=== PATIENT | female | born 1950 | race Caucasian/White ===

== ENCOUNTER 2019-04-03 09:31 | Outpatient (CLI) | payer MEDICARE, OTHER, SELFPAY ==
--- NOTE | 2019-04-03 09:49 | USCV_ITS ---
Stefany Sandoval Age: 68 Gender: F : 1950 Exam Date: 04/03/2019 09:49 Ordering Phys: Raffi Pierre DPM Technologist: Kaden Jean Exam Location: [facility] [place] Indication: POOR PULSES AND ULCERS RIGHT LEFT Brachial 152.00 mmHg Brachial 150.00 mmHg Pressure (mmHg) Waveform Pressure (mmHg) Waveform 79.00 DRYWALL CONTRACTOR 78.00 DPA 0.51 Ankle/Brachial Index FINDINGS COULD NOT GET WAVEFORM IN RT GREAT TOE TO DO TOE PRESSURE Diminished resting DEVIKA on the right side of 0.51 No Doppler flow signals are obtained in the right big toe CONCLUSIONS Features of severe peripheral arterial disease on the right side with a possible occlusion of the digital artery to the right big toe Dr Josefa Ramirez MD [facility] (Electronically Signed) Final Date: 03 April 2019 18:54 S
== END 2019-04-03 09:32 | disposition home or self-care (01) ==
LOC: RAD 09:41
PROVIDERS: Family Provider Internal Medicine; PCP Internal Medicine; Visit Provider Podiatrist Foot & Ankle Surgery
DX: I73.9 Peripheral vascular disease, unspecified (principal)
CPT/HCPCS: 93922

== ENCOUNTER 2019-04-04 14:30 | Inpatient (IN) | payer MEDICARE, OTHER, SELFPAY ==
[2019-04-04] VITALS (49 sets, daily range): BP systolic 107–196; BP diastolic 69–96; PULSE 52–85; RESP 9–27; TEMP 36.6–36.9; O2SAT 90–100; BMI 17.2
--- NOTE | 2019-04-04 19:13 | ED_ITS ---
Entered by [id number], acting as scribe for Raffi Pierre DPM Apr 04, 2019 14:30 Documented by User: Raffi Pierre DPM 04/04/19 19:15 HPI - General Adult General: Chief complaint: General Medical Stated complaint: right leg pain Time Seen by Provider: 04/04/19 19:29 Source: patient and family Mode of arrival: wheelchair Limitations: no limitations and other History of Present Illness: MD complaint: redness , possible -no circulation to R foot Onset (ago): day(s) (yesterday) Location: lower extremity (R foot) Radiation: non-radiation Severity: moderate Quality: constant Pain Consistency: constant Relieving factors: none Associated symptoms: Deny chest pain, dyspnea, nausea, rash, palpitations or vomiting Treatments prior to arrival: other (seen Dr. Pierre sent to the ED for ulterasound) Review of Systems General: Reports: 10 or more systems reviewed and unremarkable except in HPI and below Const: Denies: fever or chills Card: Denies: chest pain or palpitations Resp: Denies: shortness of breath or productive cough GI: Denies: abdominal pain, nausea or vomiting : Denies: flank pain Musc: Reports: extremity swelling, joint pain, joint stiffness and limited range of motion Skin/Breast: Reports: nail changes; Denies: rash, sores or change in hair Neuro: Reports: difficulty walking; Denies: numbness in extremities or changes in sensation Psych: Denies: suicidal ideation Jad/Lymph: Denies: easy bruising PFSH ED PFSH: Statuses (acute, chronic, etc) shown below reflect problem list status as previously entered and may not be historically accurate Medical History (Updated 04/04/19 @ 08:05 by Raffi Pierre DPM) Above knee amputation of left lower extremity (Acute) Acute hypoxemic respiratory failure (Acute) Aneurysm (Acute) COPD (chronic obstructive pulmonary disease) (Acute) Coronary artery sclerosis (Acute) CVA (cerebral vascular accident) (Acute) Essential hypertension (Acute) History of myocardial infarction (Acute) Hyperlipidemia (Acute) Lupus (Acute) Onychodystrophy (Acute) Recurrent seizures (Acute) Seizure disorder (Acute) Social History Smoking and tobacco status: former smoker Physical Exam Extremity: RIGHT LOWER EXTREMITY: Yes foot & digits (redness, mild coolness) Course Vital Signs: Vital signs: Vital Signs Temperature 98.4 F 04/04/19 14:56 Pulse Rate 58 L 04/04/19 19:30 Respiratory Rate 16 04/04/19 19:30 Blood Pressure 175/96 04/04/19 19:30 Pulse Oximetry 97 04/04/19 19:30 MDM - General Adult Lab Data: Labs: Lab Results 04/04/19 04/04/19 Range/Units 20:08 20:08 WBC 7.6 (4.0-10.0) 10^3/ uL RBC 4.36 (4.1-5.3) 10^6/u L Hgb 13.5 (11.5-15.3) g/dL Hct 41.5 (37.0-47.0) % MCV 95.2 (81-99) fL MCH 31.0 (28.0-34.0) pg MCHC 32.5 (30.0-36.0) g/dL RDW 13.8 (12.1-15.1) % Plt Count 232 (130-400) 10^3/c mm MPV 10.7 H (7.4-10.4) fL Neut % (Auto) 53.3 % Lymph % (Auto) 27.5 % [place] % (Auto) 11.8 % Eos % (Auto) 5.9 % Baso % (Auto) 1.4 % Neut # (Auto) 4.1 (1.8-7.7) 10^3/u L Lymph # (Auto) 2.1 (0.8-4.8) 10^3/u L [place] # (Auto) 0.9 (0.2-0.9) 10^3/u L Eos # (Auto) 0.5 (0.0-0.8) 10^3/u L Baso # (Auto) 0.1 (0.0-0.1) 10^3/u L Nucleated RBC % (a uto) 0 % Nucleated RBCs # 0.0 /100WBC PT 13.20 (10.5-13.3) SECO NDS INR 0.98 (0.8-1.2) APTT 33.3 (23.9-36.7) SECO NDS Discharge Plan Discharge Prescriptions: No Action PODUS BOOT 1 unit as directed DAILY 99 Days Qty: 1 RF: 0 Coding Level of Care Code ED Manufacturing Helper for Chg Fwd Documented by User: Minnie Sanchez 04/04/19 20:33 HPI - General Adult General: Chief complaint: General Medical Stated complaint: right leg pain Time Seen by Provider: 04/04/19 19:29 PFSH ED PFSH: Statuses (acute, chronic, etc) shown below reflect problem list status as previously entered and may not be historically accurate Medical History (Updated 04/04/19 @ 08:05 by Raffi Pierre DPM) Above knee amputation of left lower extremity (Acute) Acute hypoxemic respiratory failure (Acute) Aneurysm (Acute) COPD (chronic obstructive pulmonary disease) (Acute) Coronary artery sclerosis (Acute) CVA (cerebral vascular accident) (Acute) Essential hypertension (Acute) History of myocardial infarction (Acute) Hyperlipidemia (Acute) Lupus (Acute) Onychodystrophy (Acute) Recurrent seizures (Acute) Seizure disorder (Acute) Social History Smoking and tobacco status: former smoker Course Vital Signs: Vital signs: Vital Signs Temperature 98.4 F 04/04/19 14:56 Pulse Rate 58 L 04/04/19 19:30 Respiratory Rate 16 04/04/19 19:30 Blood Pressure 175/96 04/04/19 19:30 Pulse Oximetry 97 04/04/19 19:30 MDM - General Adult Lab Data: Labs: Lab Results 04/04/19 04/04/19 Range/Units 20:08 20:08 WBC 7.6 (4.0-10.0) 10^3/ uL RBC 4.36 (4.1-5.3) 10^6/u L Hgb 13.5 (11.5-15.3) g/dL Hct 41.5 (37.0-47.0) % MCV 95.2 (81-99) fL MCH 31.0 (28.0-34.0) pg MCHC 32.5 (30.0-36.0) g/dL RDW 13.8 (12.1-15.1) % Plt Count 232 (130-400) 10^3/c mm MPV 10.7 H (7.4-10.4) fL Neut % (Auto) 53.3 % Lymph % (Auto) 27.5 % [place] % (Auto) 11.8 % Eos % (Auto) 5.9 % Baso % (Auto) 1.4 % Neut # (Auto) 4.1 (1.8-7.7) 10^3/u L Lymph # (Auto) 2.1 (0.8-4.8) 10^3/u L [place] # (Auto) 0.9 (0.2-0.9) 10^3/u L Eos # (Auto) 0.5 (0.0-0.8) 10^3/u L Baso # (Auto) 0.1 (0.0-0.1) 10^3/u L Nucleated RBC % (a uto) 0 % Nucleated RBCs # 0.0 /100WBC PT 13.20 (10.5-13.3) SECO NDS INR 0.98 (0.8-1.2) APTT 33.3 (23.9-36.7) SECO NDS EKG Data^: EKG 1: Attestation: I personally reviewed and interpreted this EKG as follows: EKG interpretation date: 04/04/19 EKG interpretation time: 19:46 Interpretation: Normal sinus rhythm at 65 beats a minute, interventricular conduction delay, similar to previous. Discharge Plan Discharge Prescriptions: No Action PODUS BOOT 1 unit as directed DAILY 99 Days Qty: 1 RF: 0 Coding Level of Care Code ED Manufacturing Helper for Chg Fwd The documentation recorded by the scribe, [id number], accurately reflects the service I personally performed and the decisions made by Goodman barron Tyler, DPM Apr 04, 2019 14:30
--- NOTE | 2019-04-04 19:26 | PC.NURSE ---
pt presents to ER with c/o's rt foot pain r/t no circulation. seen dr luther yesterday. pt and family states she is here because blood flow scans from yesterday showed no flow to right foot/toes. needs cardiac consult
--- NOTE | 2019-04-04 19:30 | USR_ITS ---
PROCEDURE INFORMATION: Exam: US Duplex Right Lower extremity arteries or arterial bypass grafts Exam date and time: 04/04/2019 7:39 PM Age: 68 years old Clinical indication: Pain; Foot; Right; Prior surgery; Surgery type: Patient has plate in lower leg and left leg amputee at knee; Additional info: Pain in foot TECHNIQUE: Imaging protocol: Right Real-time duplex scan of the arteries or arterial bypass grafts of the right lower extremity with 2-D otero scale, color Doppler flow and spectral waveform analysis. COMPARISON: No relevant prior studies available. FINDINGS: Right common femoral artery: No discernible flow. No waveform could be obtained. Right superficial femoral artery: No flow is identified in the right proximal iliac, right femoral and right superficial femoral artery. Monophasic flow seen in the right popliteal and infrapopliteal vessels. The lumen of the right popliteal and posterior tibial artery is narrowed due to heavy atherosclerotic plaque. Diffuse plaque is identified in the right iliac, femoral and superficial femoral arteries. Right popliteal artery: See Right Superficial Femoral Artery Finding. Right calf/foot arteries: Monophasic flow. Diffuse atherosclerotic changes. Soft tissues: No soft tissue fluid collection. US/[place] [id number] IMPRESSION: 1. Occlusion of the right iliac, right femoral and right superficial femoral arteries. There is no discernible flow and no waveforms are obtained. 2. Monophasic flow in the right popliteal and right posterior tibial artery with narrowing of the lumen due to diffuse plaque.
--- NOTE | 2019-04-04 19:33 | ECG_ITS ---
Measurements Intervals [place] Rate: 65 P: 41 MT: 164 QRS: -32 QRSD: 158 T: 115 QT: 459 QTc: 478 SINUS RHYTHM POSSIBLE LEFT ATRIAL ENLARGEMENT [-0.1mV P WAVE IN V1/V2] LEFT AXIS DEVIATION [QRS AXIS < -30] Incomplete left bundle branch block Compared to ECG 07/26/2017 05:26:33 Incomplete left bundle branch block now present Electronically Signed On 04-05-2019 11:31:21 ASSISTANT DIRECTOR OF FINANCIAL AID by Barrera Watters M.D. [email or web address]
[2019-04-04 20:15] LABS: Basophils # 0.1 10^3/uL (0.0-0.1); Basophils % 1.4 %; Eosinophils # 0.5 10^3/uL (0.0-0.8); Eosinophils % 5.9 %; Hematocrit 41.5 % (37.0-47.0); Hemoglobin 13.5 g/dL (11.5-15.3); Lymphocytes # 2.1 10^3/uL (0.8-4.8); Lymphocytes % 27.5 %; Mean Corpuscular HGB Conc 32.5 g/dL (30.0-36.0); Mean Corpuscular Volume 95.2 fL (81-99); Mean Platelet Volume 10.7 fL (7.4-10.4); Monocytes # 0.9 10^3/uL (0.2-0.9); Monocytes % 11.8 %; Neutrophils # 4.1 10^3/uL (1.8-7.7); Neutrophils % 53.3 %; Nucleated Red Blood Cells % 0 %; Platelet Count 232 10^3/cmm (130-400); Red Blood Count 4.36 10^6/uL (4.1-5.3); Red Cell Distribution Width 13.8 % (12.1-15.1); White Blood Count 7.6 10^3/uL (4.0-10.0)
[2019-04-04 20:23] LABS: INR 0.98 (0.8-1.2)
[2019-04-04 20:24] LABS: Partial Thromboplastin Time 33.3 SECONDS (23.9-36.7)
--- NOTE | 2019-04-04 21:27 | PC.NURSE ---
Assisted patient onto beside commode with assistance of family. Patient has attempted to urinate but is having difficulty, nurse has been informed.
[2019-04-04 21:28] LABS: Alanine Aminotransferase 12 U/L (0-33); Albumin Level 4.2 g/dL (3.5-5.2); Alkaline Phosphatase 125 IU/L (35-105); Aspartate Amino Transferase 17 U/L (0-32); Blood Urea Nitrogen 19 mg/dL (8-23); Calcium 10.9 mg/dL (8.5-10.5); Carbon Dioxide 25 mmol/L (22-29); Chloride 93 mmol/L (98-107); Creatine Phosphokinase 43 U/L (26-192); Creatinine Clr Calc Pharmacy 49.5327; Globulin 3.7 g/dL (1.3-4.6); Glomerular Filtration Rate 83.7 mL/min (90-130); Glucose 111 mg/dL (74-106); Sodium 131 mmol/L (136-145); Total Bilirubin 0.3 mg/dL (0.15-1.2); Total Protein 7.9 g/dL (6.6-8.7)
--- NOTE | 2019-04-04 21:30 | ED_ITS ---
Entered by Maddison Berry, acting as scribe for Minnie Sanchez Sridevi Apr 04, 2019 14:30 HPI - General Adult General: Chief complaint: General Medical Stated complaint: right leg pain Time Seen by Provider: 04/04/19 19:29 Source: patient Mode of arrival: wheelchair Limitations: no limitations History of Present Illness: HPI narrative: Ms. Sandoval is a nice 68-year-old female who comes in complaining of right lower extremity pain. She states she has had pain in her foot for the past 2 weeks but is gotten much worse recently. She has a history of peripheral vascular disease and went to see Dr. Nash and Michael Pierre a local raw mill operator about this and they scheduled an outpatient DEVIKA test. Apparently Mr. Pierre got the results of this and was concerned as the patient was having escalating pain and sent her to the ER. Patient states that she has increased pain but no other complaints at this time. MD complaint: redness and cool to touch R foot Onset (ago): day(s) (yesterday) Location: lower extremity (R foot redness) Severity: moderate Pain Consistency: constant Relieving factors: none Exacerbating factors: none Associated symptoms: Reports no associated symptoms; Deny chest pain, confusion, diaphoresis, dyspnea, headache(s), nausea, rash, palpitations, syncope or vomiting Treatments prior to arrival: other (seen Dr. Pierre and they sent her here) Review of Systems General: Reports: 10 or more systems reviewed and unremarkable except in HPI and below Const: Denies: fever, chills, body aches, change in appetite, night sweats, diaphoresis or change in sleep pattern Eyes: Denies: eye redness or yellow eyes ENMT: Denies: bad breath, nasal discharge or facial/sinus pain Card: Denies: chest pain, palpitations, irregular heart rhythm, syncope, pre- syncope, shortness of breath on exertion or shortness of breath when lying down Resp: Denies: shortness of breath, productive cough, non-productive cough, wheezing, coughing up blood or chest congestion GI: Denies: abdominal pain, nausea, vomiting, vomiting blood, coffee grounds in vomit, diarrhea, constipation, cramping, blood in stool or black tarry stool : Denies: flank pain, painful urination, urinary frequency, urinary urgency, decreased urine ouput, urinary incontinence or blood in urine Musc: Denies: neck pain, back pain, extremity pain, extremity swelling, joint pain, joint swelling, joint warmth or joint stiffness Skin/Breast: Denies: rash, skin tenderness or yellow skin Neuro: Denies: headache, numbness in extremities, weakness in extremities, changes in sensation, lack of coordination, difficulty walking, dizziness, vertigo or confusion Endo: Denies: excessive thirst, tired all the time, cold intolerance, excessive sweating, flushing or hot flashes Jad/Lymph: Denies: easy bruising, easy bleeding, petechiae or enlarged lymph nodes All/Imm: Denies: hives, throat swelling, tongue swelling, facial swelling or acute wheezing PFSH ED PFSH: Statuses (acute, chronic, etc) shown below reflect problem list status as previously entered and may not be historically accurate Medical History (Updated 04/04/19 @ 08:05 by Raffi Pierre DPM) Above knee amputation of left lower extremity (Acute) Acute hypoxemic respiratory failure (Acute) Aneurysm (Acute) COPD (chronic obstructive pulmonary disease) (Acute) Coronary artery sclerosis (Acute) CVA (cerebral vascular accident) (Acute) Essential hypertension (Acute) History of myocardial infarction (Acute) Hyperlipidemia (Acute) Lupus (Acute) Onychodystrophy (Acute) Recurrent seizures (Acute) Seizure disorder (Acute) Social History Smoking and tobacco status: former smoker Physical Exam Const: COMMON NORMALS: no apparent distress, oriented x3, no limitations, healthy appearing and well nourished EXAM LIMITATIONS: no altered mental status GENERAL APPEARANCE: cooperative, well kempt and well developed ORIENTATION/CONSCIOUSNESS: Yes awake HENMT: COMMON NORMALS: normocephalic, head/scalp atraumatic, hearing grossly normal bilaterally, external ears normal, EAC's normal, external nose normal and moist oral mucous membranes HEAD & SCALP: normal to inspection, normocephalic and atraumatic FACE & SINUS: normal facial exam and face symmetric NOSE: external nose normal and nares normal EXTERNAL EAR: Yes external ears normal EXTERNAL AUDITORY CANAL: EAC's normal MOUTH: oral and palatal mucosa normal and tongue normal Eye: COMMON NORMALS: PERRL, EOMs intact bilaterally, conjunctivae normal and no scleral icterus GENERAL EYE: normal appearance of both eyes and normal light reflex CONJUNCTIVA: Yes conjunctivae normal SCLERA: sclerae normal CORNEA: Yes corneas normal PUPIL: Yes PERRL DIRECT OPHTHALMOSCOPY: Yes normal light reflex Neck/C-Spine: COMMON NORMALS: full ROM, no lymphadenopathy, supple, no meningeal signs and no JVD GENERAL: Yes normal visual inspection and Yes trachea midline CERVICAL SPINE: Yes cervical ROM normal Chest: COMMONS NORMALS: inspection of chest normal and palpation of chest normal Resp: COMMON NORMALS: normal respiratory effort, no retractions, no use of accessory muscles and clear to auscultation bilaterally EFFORT & INSPECTION: Yes able to speak in complete sentences AUSCULTATION: clear to auscultation bilaterally Cardio: COMMON NORMALS: no JVD, regular rate, regular rhythm, S1 normal heart sound, S2 normal heart sound, no gallops, no clicks, no murmurs and no rub JUGULAR VENOUS DISTENTION: no JVD RATE: regular rate RHYTHM: regular rhythm HEART SOUNDS: S1 normal and S2 normal GI: COMMON NORMALS: soft to palpation, non-tender, no hepatosplenomegaly and no masses INSPECTION: Yes normal to inspection PALPATION: Yes soft and Yes no hepatosplenomegaly : COMMON NORMALS: Yes no CVA tenderness BLADDER/KIDNEY EXAM: Yes no CVA tenderness Back/Pelvis: COMMON NORMALS: no CVA tenderness, thoracic and lumbar spine normal to inspection, no thoracic nor lumbar tenderness and thoraco-lumbar ROM normal Neuro: COMMON NORMALS: oriented x3, CN's II-XII intact bilaterally, moves all extremities, no focal motor deficits and no sensory deficits noted MENINGEAL SIGNS: Yes no meningeal signs Psych: COMMON NORMALS: mental status grossly normal, thought process normal, cooperative, affect normal, speech normal and activity/motor behavior normal APPEARANCE: Yes well kempt SPEECH: Yes normal speech THOUGHT PROCESS: normal thought process Skin: COMMON NORMALS: no rashes or lesions noted, skin turgor normal, no jaundice, no petechiae and no mottling GENERAL SKIN EXAM: no rashes or lesions noted and turgor normal Course Vital Signs: Vital signs: Vital Signs Temperature 97.8 F 04/04/19 23:54 Pulse Rate 56 L 04/04/19 23:54 Respiratory Rate 17 04/04/19 23:54 Blood Pressure 178/73 04/04/19 23:54 Pulse Oximetry 95 04/04/19 23:54 MDM - General Adult MDM Narrative: Medical decision making narrative: Ms. Sandoval is a 68-year-old female who comes in with ischemic pain of her right lower extremity. Her ultrasound shows only minimal flow in the CAREER TECHNICAL EDUCATION INSTRUCTOR. I reviewed all this with Dr. Watters who states that the patient's pain is intractable she can come into the hospital for evaluation. He does not feel that she needs any intervention tonight. The patient's pain is actually better now after IV pain medication. I reviewed the case in full with Dr. Turcios who is agreeable to admission. The patient was given Lovenox and will be admitted to the floor. Currently her pain is under control after IV Dilaudid. Lab Data: Attestation: I reviewed the patient's lab results. Labs: Lab Results 04/04/19 04/04/19 04/04/19 Range/Units 20:08 20:08 20:50 WBC 7.6 (4.0-10.0) 10^3/ uL RBC 4.36 (4.1-5.3) 10^6/u L Hgb 13.5 (11.5-15.3) g/dL Hct 41.5 (37.0-47.0) % MCV 95.2 (81-99) fL MCH 31.0 (28.0-34.0) pg MCHC 32.5 (30.0-36.0) g/dL RDW 13.8 (12.1-15.1) % Plt Count 232 (130-400) 10^3/c mm MPV 10.7 H (7.4-10.4) fL Neut % (Auto) 53.3 % Lymph % (Auto) 27.5 % [place] % (Auto) 11.8 % Eos % (Auto) 5.9 % Baso % (Auto) 1.4 % Neut # (Auto) 4.1 (1.8-7.7) 10^3/u L Lymph # (Auto) 2.1 (0.8-4.8) 10^3/u L [place] # (Auto) 0.9 (0.2-0.9) 10^3/u L Eos # (Auto) 0.5 (0.0-0.8) 10^3/u L Baso # (Auto) 0.1 (0.0-0.1) 10^3/u L Nucleated RBC % (a uto) 0 % Nucleated RBCs # 0.0 /100WBC PT 13.20 (10.5-13.3) SECO NDS INR 0.98 (0.8-1.2) APTT 33.3 (23.9-36.7) SECO NDS Sodium 131 L (136-145) mmol/L Potassium 4.0 (3.5-5.1) mmol/L Chloride 93 L (98-107) mmol/L Carbon Dioxide 25 (22-29) mmol/L Anion Gap 17.0 (5-19) BUN 19 (8-23) mg/dL Creatinine 0.7 (0.5-0.9) mg/dL GFR Calculation 83.7 L (90-130) mL/min Glucose 111 H (74-106) mg/dL Lactate (0.5-2.2) mmol/L Calcium 10.9 H (8.5-10.5) mg/dL Magnesium 2.0 (1.7-2.3) mg/dL Total Bilirubin 0.3 (0.15-1.2) mg/dL AST 17 (0-32) U/L ALT 12 (0-33) U/L Alkaline Phosphata se 125 H (35-105) IU/L Creatine Kinase 43 (26-192) U/L Total Protein 7.9 (6.6-8.7) g/dL Albumin 4.2 (3.5-5.2) g/dL Globulin 3.7 (1.3-4.6) g/dL 04/04/19 Range/Units 20:50 WBC (4.0-10.0) 10^3/ uL RBC (4.1-5.3) 10^6/u L Hgb (11.5-15.3) g/dL Hct (37.0-47.0) % MCV (81-99) fL MCH (28.0-34.0) pg MCHC (30.0-36.0) g/dL RDW (12.1-15.1) % Plt Count (130-400) 10^3/c mm MPV (7.4-10.4) fL Neut % (Auto) % Lymph % (Auto) % Arthur % (Auto) % Eos % (Auto) % Baso % (Auto) % Neut # (Auto) (1.8-7.7) 10^3/u L Lymph # (Auto) (0.8-4.8) 10^3/u L [place] # (Auto) (0.2-0.9) 10^3/u L Eos # (Auto) (0.0-0.8) 10^3/u L Baso # (Auto) (0.0-0.1) 10^3/u L Nucleated RBC % (a uto) % Nucleated RBCs # /100WBC PT (10.5-13.3) SECO NDS INR (0.8-1.2) APTT (23.9-36.7) SECO NDS Sodium (136-145) mmol/L Potassium (3.5-5.1) mmol/L Chloride (98-107) mmol/L Carbon Dioxide (22-29) mmol/L Anion Gap (5-19) BUN (8-23) mg/dL Creatinine (0.5-0.9) mg/dL GFR Calculation (90-130) mL/min Glucose (74-106) mg/dL Lactate 1.0 (0.5-2.2) mmol/L Calcium (8.5-10.5) mg/dL Magnesium (1.7-2.3) mg/dL Total Bilirubin (0.15-1.2) mg/dL AST (0-32) U/L ALT (0-33) U/L Alkaline Phosphata se (35-105) IU/L Creatine Kinase (26-192) U/L Total Protein (6.6-8.7) g/dL Albumin (3.5-5.2) g/dL Globulin (1.3-4.6) g/dL Imaging Data^: US: Radiologist's impression: [address] [address] Ultrasound Report Signed with Addenda Patient: Efrain Sandoval #: [id number] : 3Acct#:[id number] Age/Sex: 68 / FADM Date: 04/04/19 Loc: ERRoom/Bed: Attending Dr: Ordering Provider/Ordering MD: Minnie Sanchez DO Date of Service: 04/04/19 Procedure(s): [place] [id number] Accession Number(s): [id number] Report Number: [id number] ADDENDUM US/[place] [id number] THIS REPORT CONTAINS FINDINGS THAT MAY BE CRITICAL TO PATIENT CARE. The findings were verbally communicated via telephone conference with Minnie Sanchez at 8:47 PM NURSE CONSULTANT on 04/04/2019. The findings were acknowledged and understood. Also discussed was the monophasic flow in the popliteal artery and dorsalis pedis and very little flow visualized in the posterior tibial artery. No good waveform is identified in the posterior tibial artery is described above. Instead it should read that there is monophasic flow in the right dorsalis pedis and right popliteal artery. Addendum Dictated By: Nemo Concepcion Addendum Signed By: Rayne Concepcion Date/Time:04/04/192048 Addendum Cosigned By: PROCEDURE INFORMATION: Exam: US Duplex Right Lower extremity arteries or arterial bypass grafts Exam date and time: 04/04/2019 7:39 PM Age: 68 years old Clinical indication: Pain; Foot; Right; Prior surgery; Surgery type: Patient has plate in lower leg and left leg amputee at knee; Additional info: Pain in foot TECHNIQUE: Imaging protocol: Right Real-time duplex scan of the arteries or arterial bypass grafts of the right lower extremity with 2-D otero scale, color Doppler flow and spectral waveform analysis. COMPARISON: No relevant prior studies available. FINDINGS: Right common femoral artery: No discernible flow. No waveform could be obtained. Right superficial femoral artery: No flow is identified in the right proximal iliac, right femoral and right superficial femoral artery. Monophasic flow seen in the right popliteal and infrapopliteal vessels. The lumen of the right popliteal and posterior tibial artery is narrowed due to heavy atherosclerotic plaque. Diffuse plaque is identified in the right iliac, femoral and superficial femoral arteries. Right popliteal artery: See Right Superficial Femoral Artery Finding. Right calf/foot arteries: Monophasic flow. Diffuse atherosclerotic changes. Soft tissues: No soft tissue fluid collection. US/[place] [id number] IMPRESSION: 1. Occlusion of the right iliac, right femoral and right superficial femoral arteries. There is no discernible flow and no waveforms are obtained. 2. Monophasic flow in the right popliteal and right posterior tibial artery with narrowing of the lumen due to diffuse plaque. Dictated By:Nemo Concepcion Signed By:Mira Concepcionigned Date/Time:04/04/192045 DD/ 43 EKG Data^: EKG 1: Computer generated interpretation: Duplex Scan Lower Extremity Artery 04/04/19 19:30 IMPRESSION: 1. Occlusion of the right iliac, right femoral and right superficial femoral arteries. There is no discernible flow and no waveforms are obtained. 2. Monophasic flow in the right popliteal and right posterior tibial artery with narrowing of the lumen due to diffuse plaque. ADDENDUM: 04/04/192048 THIS REPORT CONTAINS FINDINGS THAT MAY BE CRITICAL TO PATIENT CARE. The findings were verbally communicated via telephone conference with Minnie Sanchez at 8:47 PM NURSE CONSULTANT on 04/04/2019. The findings were acknowledged and understood. Also discussed was the monophasic flow in the popliteal artery and dorsalis pedis and very little flow visualized in the posterior tibial artery. No good waveform is identified in the posterior tibial artery is described above. Instead it should read that there is monophasic flow in the right dorsalis pedis and right popliteal artery. Discharge Plan Discharge Patient Disposition: Admitted As Inpatient Admit Provider: Rafiq Turcios Discharge Date/Time: 04/04/19 23:16 Coding Level of Care Code ED Research Soil Scientist for Chg Fwd Exam Problem Focused The documentation recorded by the Jamal cervantes Bridget Annette, accurately reflects the service I personally performed and the decisions made by Daniel barron Eli N Apr 04, 2019 14:30
[2019-04-04] MEDS: HYDROmorphone 1 mg/mL INJ 1 mL 0.5 MG IVP (21:35)
[2019-04-04] MEDS: ondansetron 2 mg/ML SDV 2 mL 4 MG IVP (21:35)
--- NOTE | 2019-04-04 22:30 | PM.HP ---
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 Patient is stating that she is dependent on her for most of her daily activities, she enjoys watching sports on television, she ambulates via wheelchair, she recently quit smoking about 3 months ago. For past 3 to 5 weeks she has been having pain in her right leg while at rest. She has seen lift truck mechanic Dr. Pierre who ordered DEVIKA which were 0.51 hence she was referred to ER for admission. On my evaluation patient was not complaining of right leg pain, she complained of dysuria, she denied any nausea, vomiting, diarrhea, she was made n.p.o. for possible intervention by Dr. Watters in the morning. ER physician has talked with Dr. Watters already. First therapeutic dose of Lovenox has been administered, No active signs of gangrene or necrosis of right toe Review of Systems Const: Reports: change in appetite, fatigue and malaise; Denies: fever, chills or body aches Eyes: Denies: change in vision or blurry vision ENMT: Denies: throat pain Card: Denies: chest pain, palpitations or edema Resp: Denies: shortness of breath GI: Denies: abdominal pain, nausea or vomiting : Reports: difficulty urinating, painful urination and urinary frequency; Denies: flank pain Musc: Reports: back pain, extremity pain, redness, joint stiffness, limited range of motion and muscle cramps; Denies: neck pain or extremity swelling Skin/Breast: Reports: dry skin; Denies: rash Neuro: Denies: headache Psych: Denies: anxiety Endo: Denies: excessive urination Jad/Lymph: Denies: easy bruising All/Imm: Denies: hives Medications/Allergies Home Medications Medication Instructions Recorded Confirmed Last Taken Type amlodipine [Norvasc] 10 mg PO BEDTIME 04/05/19 04/05/19 04/04/19 History 10 mg aspirin [Aspirin Low Dose] 81 mg PO DAILY 04/05/19 04/05/19 04/04/19 History 81 mg docusate sodium [DOK] 100 mg PO BID 04/05/19 04/05/19 04/04/19 History 100 mg duloxetine [Cymbalta] 20 mg PO BEDTIME 04/05/19 04/05/19 04/04/19 History 20 mg levetiracetam [Keppra] 500 mg PO BID 04/05/19 04/05/19 04/04/19 History 500 mg metoprolol tartrate [Lopressor] 100 mg PO BEDTIME 04/05/19 04/05/19 04/04/19 History 100 mg js-kk-boei-FA-Ca carb-vit K 1 tab PO DAILY 04/05/19 04/05/19 04/04/19 History [Women's Multivitamin] 1 tab olmesartan [Benicar] 40 mg PO BEDTIME 04/05/19 04/05/19 04/04/19 History 40 mg Allergies Allergy/AdvReac Type Severity Reaction Status Date / Time Sulfa (Sulfonamide Allergy Unknown Unknown Verified 03/13/19 14:07 Antibiotics) PFSH Acute PFSH: Statuses (acute, chronic, etc) shown below reflect problem list status as previously entered and may not be historically accurate Medical History (Updated 04/05/19 @ 01:53 by Rafiq Turcios MD) Above knee amputation of left lower extremity (Acute) Above knee amputation of left lower extremity (Acute) Acute hypoxemic respiratory failure (Acute) Aftercare following right hip joint replacement surgery (Acute) Anemia of chronic disease (Acute) Aneurysm (Acute) Brain aneurysm (Acute) COPD (chronic obstructive pulmonary disease) (Acute) Coronary artery disease (Acute) Coronary artery sclerosis (Acute) CVA (cerebral vascular accident) (Acute) Essential hypertension (Acute) History of myocardial infarction (Acute) Hyperlipidemia (Acute) Lupus (Acute) Onychodystrophy (Acute) Osteoporosis (Acute) Peripheral vascular disease (Acute) Presence of stent in LAD coronary artery (Acute) Raynaud phenomenon (Acute) Recurrent seizures (Acute) Rheumatoid arthritis (Acute) Seizure disorder (Acute) SLE (systemic lupus erythematosus related syndrome) (Acute) Unilateral AKA (Acute) Vitamin D deficiency (Acute) Surgical History (Updated 04/05/19 @ 01:53 by Rafiq Turcios MD) Hx of cholecystectomy (Acute) S/P coil embolization of cerebral aneurysm (Acute) Family History (Updated 04/05/19 @ 01:53 by Rafiq Turcios MD) Other CAD (coronary artery disease) Social History (Updated 04/05/19 @ 01:53 by Rafiq Turcios MD) Smoking and tobacco status: former smoker Alcohol intake: never Substance/Drug Use: never Caregiver/support person: Yes Lives independently: No Household members: spouse Housing: House Marital status: Vitals/I&O/Wt Last Vital Signs Temp 98.4 F 04/04/19 14:56 Pulse 56 L 04/04/19 20:45 Resp 17 04/04/19 21:35 BP 179/86 04/04/19 20:30 Pulse Ox 98 04/04/19 21:35 Weight last 48 hrs Weight 45.359 kg Physical Exam Narrative: EXAM NARRATIVE: Frail elderly female She was eating sandwich when I entered the room, She has dentures, has mild slurring of speech which is old as per my documentation reviewed Otherwise she has good strength of her bilateral upper extremities, S1, S2 no signs of JVD or heart failure, she has systolic murmur grade 2/6 radiating toward her axilla Abdomen soft nontender nondistended bowel sound present Neurologically nonfocal exam Left above-knee amputation Skin does not show any signs of ischemia gangrene or ulcer Her right toe has 1+ dorsalis pedis pulse, very feeble posterior tibial pulse, no active signs of gangrene or ulcer no cyanosis, temperature normal Onychomycosis She has rheumatoid arthritis and deformity Loss of fingernails and the digital tips Data : 04/04/19 20:08 04/04/19 20:50 A&P Assessment and plan (1) Ischemic leg pain: Status: Acute Code(s): I99.8 - Other disorder of circulatory system (2) Onychodystrophy: Status: Acute Code(s): L60.3 - Nail dystrophy Additional A&P Information Right ischemic limb Patient is having right leg pain at rest She has raynaud's phenomenon and recently quit smoking 3 months ago I will keep her on calcium lio, aspirin, statin, full dose therapeutic Lovenox every 12, n.p.o. D5 half-normal fluids at 30 cc/h Her DEVIKA was 0.51 Dr. Watters has been consulted by ER physician Dr. Pierre has referred patient to ER for vascular intervention UTI with active symptoms of dysuria and frequency With straight catheter get urine sample for urinalysis and start ceftriaxone afterwards Coronary disease status post stent in LAD No active exacerbation She has a history of breakthrough seizures which he started having after brain aneurysm clipping Continue antiepileptic Anemia of chronic disease: Hemoglobin 13, stable Patient is full code DVT prophylaxis not indicated currently she is on therapeutic Lovenox GI prophylaxis: Not indicated Attestations Medical Necessity Statement*: Anticipating stay in the hospital course greater than 2 midnights because of ischemic limb intervention Time Spent in Patient Care: 60 Coding Level of Care Code Acute 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
[2019-04-04] MEDS: enoxaparin 60 mg/0.6 mL Syringe 45 MG SUBCUT (22:50)
[2019-04-05] VITALS (10 sets, daily range): BP systolic 108–178; BP diastolic 60–82; PULSE 56–81; RESP 16–22; TEMP 36.4–36.7; O2SAT 92–99
[2019-04-05] MEDS: atorvastatin 40 mg Tablet 80 MG PO ×2 (02:11→21:33)
[2019-04-05] MEDS: acetaminophen 325 mg Tablet 650 MG PO ×2 (02:11→19:46)
[2019-04-05] MEDS: sodium chloride 0.9% 1,000 ML 100 ML IV (02:12)
[2019-04-05] MEDS: dextrose 5%-sod chloride 0.45% 1,000 ML 30 ML IV (02:22)
[2019-04-05 04:05] LABS: Glucose Urine UA Norm (Normal); Protein Urine Trace (Negative); Specific Gravity, Urine 1.015 (1.005-1.030); Urine Appearance Hazy (CLEAR); Urine Color Yellow (Yellow); pH Urine 6 (5-7)
[2019-04-05 04:06] LABS: Bilirubin Urine Neg (NEGATIVE); Blood Urine 3+ (Negative); Ketones Urine Negative (Negative); Nitrate Urine Negative (Negative); Urobilinogen Urine Norm (Negative)
[2019-04-05 04:07] LABS: Hyaline Casts Urine 15-25
[2019-04-05 04:09] LABS: Leukocyte Esterase Urine Trace (Negative)
[2019-04-05 04:10] LABS: WBC Urine 15-25 /hpf (0-5)
[2019-04-05 04:11] LABS: Bacteria Urine TRACE; Transitional Epi Cells Urine 0-4 /hpf
[2019-04-05 04:13] LABS: Add Urine Culture? Yes
[2019-04-05 07:01] LABS: Basophils # 0.1 10^3/uL (0.0-0.1); Basophils % 1.3 %; Eosinophils # 0.6 10^3/uL (0.0-0.8); Eosinophils % 8.2 %; Hemoglobin 12.7 g/dL (11.5-15.3); Lymphocytes % 29.1 %; Mean Corpuscular HGB Conc 32.6 g/dL (30.0-36.0); Mean Corpuscular Hemoglobin 31.1 pg (28.0-34.0); Mean Corpuscular Volume 95.6 fL (81-99); Mean Platelet Volume 11.7 fL (7.4-10.4); Monocytes # 0.8 10^3/uL (0.2-0.9); Monocytes % 12.2 %; Neutrophils # 3.3 10^3/uL (1.8-7.7); Neutrophils % 48.9 %; Nucleated Red Blood Cells % 0 %; Platelet Count 166 10^3/cmm (130-400); Red Blood Count 4.08 10^6/uL (4.1-5.3); Red Cell Distribution Width 13.8 % (12.1-15.1); White Blood Count 6.8 10^3/uL (4.0-10.0)
[2019-04-05 07:52] LABS: Anion Gap 17.1 (5-19); Blood Urea Nitrogen 17 mg/dL (8-23); Calcium 10.1 mg/dL (8.5-10.5); Carbon Dioxide 25 mmol/L (22-29); Chloride 96 mmol/L (98-107); Creatinine Clr Calc Pharmacy 49.5327; Glucose 101 mg/dL (74-106); Osmolality Calculated 275 mOsm/kg (285-295); Potassium 4.1 mmol/L (3.5-5.1); Sodium 134 mmol/L (136-145)
[2019-04-05] MEDS: metoprolol tartrate 50 mg Tablet PO ×2 (08:44→17:14)
[2019-04-05] MEDS: aspirin 81 mg EC Tablet PO (08:44)
[2019-04-05] MEDS: levETIRAcetam 500 mg Tablet PO ×2 (08:44→17:14)
[2019-04-05] MEDS: docusate sodium 100 mg Capsule PO ×2 (08:45→17:14)
--- NOTE | 2019-04-05 08:52 | PC.NURSE ---
Pedal pulse to right foot doppled at this time. Pt alert and oriented x3. Redness to right lower extremity, and right heel. Cushion in place to right heel to prevent breakdown.
[2019-04-05] MEDS: enoxaparin 60 mg/0.6 mL Syringe 50 MG SUBCUT (10:25)
--- NOTE | 2019-04-05 10:29 | PM.CONSULT ---
Providers/Reason For Consult Consulting Physican/Specialty*: Cardiovascular medicine Reason for Consult*: Pain in the right foot with abnormal noninvasive studies Requesting Libiaan: Attending Physician: Bette Cordon MD Primary Care Provider: Jakob Nash MD History of Present Illness History of Present Illness Stefany Sandoval is a 68 year old female who has a known history of heavy tobacco abuse and peripheral arterial disease. Several years ago she had her left leg removed below the knee. On March 13 of this year she went to visit Dr. Pierre with pain in her right foot. There were no lesions on the foot but he was concerned about her vasculature. She was having numbness and tingling as well as pain in the foot. She states that the symptoms have been there for about 2 weeks. Yesterday, information regarding the right ankle-brachial index returned to his office. The measurement was 0.51. The patient contacted his office and reported increased pain. He directed her to the emergency room. She was admitted overnight and we are asked to see her as a result of this. Duplex scan of the right lower extremity was accomplished later in the day yesterday. This revealed occlusion of the right iliac, right femoral and right superficial femoral arteries. There was no discernible flow in any of these vessels. There was monophasic flow in the right popliteal and the right posterior tibial artery with narrowing of the lumen. This is likely related to collateral flow. She is still having a fair amount of pain in the foot. She has been placed on aspirin, statin, amlodipine, beta-lio and Lovenox twice daily. Her creatinine is normal. Meds/Allergies Home Medications and Allergies Home Medications Medication Instructions Recorded Confirmed Type amlodipine [Norvasc] 10 mg PO BEDTIME 04/05/19 04/05/19 History aspirin [Aspirin Low Dose] 81 mg PO DAILY 04/05/19 04/05/19 History docusate sodium [DOK] 100 mg PO BID 04/05/19 04/05/19 History duloxetine [Cymbalta] 20 mg PO BEDTIME 04/05/19 04/05/19 History levetiracetam [Keppra] 500 mg PO BID 04/05/19 04/05/19 History metoprolol tartrate [Lopressor] 100 mg PO BEDTIME 04/05/19 04/05/19 History jd-tg-kdiy-FA-Ca carb-vit K 1 tab PO DAILY 04/05/19 04/05/19 History [Women's Multivitamin] olmesartan [Benicar] 40 mg PO BEDTIME 04/05/19 04/05/19 History Allergies Allergy/AdvReac Type Severity Reaction Status Date / Time Sulfa (Sulfonamide Allergy Unknown Unknown Verified 03/13/19 14:07 Antibiotics) Current Medications Current Medications Generic Name Dose Route Start Last Admin Trade Name Freq PRN Reason Stop Dose Admin Acetaminophen 650 mg 04/04/19 23:59 04/05/19 02:11 Tylenol PO 650 mg Q6H PRN Administration Mild/Mod Pain Or Temp >/= 101 Aspirin 81 mg 04/05/19 09:00 04/05/19 08:44 Aspirin Ec PO 81 mg DAILY STEWART Administration Atorvastatin Calcium 80 mg 04/04/19 23:59 04/05/19 02:11 Lipitor PO 80 mg BEDTIME STEWART Administration Docusate Sodium 100 mg 04/05/19 09:00 04/05/19 08:45 Colace PO 100 mg BID STEWART Administration Dextrose/Sodium Chloride 1,000 mls @ 30 mls/hr 04/05/19 02:15 04/05/19 02:22 Dextrose 5%-Sod Chloride 0.45% IV 30 mls/hr .Q24H STEWART Administration Levetiracetam 500 mg 04/05/19 09:00 04/05/19 08:44 Keppra PO 500 mg BID STEWART Administration Metoprolol Tartrate 50 mg 04/05/19 09:00 04/05/19 08:44 Lopressor PO 50 mg BID STEWART Administration PFSH Acute PFSH: Statuses (acute, chronic, etc) shown below reflect problem list status as previously entered and may not be historically accurate Medical History Above knee amputation of left lower extremity (Acute) Aftercare following right hip joint replacement surgery (Acute) Anemia of chronic disease (Acute) Brain aneurysm (Acute) COPD (chronic obstructive pulmonary disease) (Acute) Coronary artery disease (Acute) CVA (cerebral vascular accident) (Acute ~04/05/19) Essential hypertension (Acute) History of myocardial infarction (Acute) Hyperlipidemia (Acute) Onychodystrophy (Acute) Osteoporosis (Acute) Peripheral vascular disease (Acute) Presence of stent in LAD coronary artery (Acute) Raynaud phenomenon (Acute) Rheumatoid arthritis (Acute) Seizure disorder (Acute) SLE (systemic lupus erythematosus related syndrome) (Acute) Tobacco abuse, in remission (Acute) Vitamin D deficiency (Acute) Surgical History Hx of cholecystectomy (Acute) S/P coil embolization of cerebral aneurysm (Acute) Family History Other CAD (coronary artery disease) Social History Smoking and tobacco status: former smoker Alcohol intake: never Substance/Drug Use: never Caregiver/support person: Yes Lives independently: No Household members: spouse Housing: House Marital status: Vitals/I&O/Wt Last Vital Signs Temp 98.0 F 04/05/19 07:51 Pulse 60 04/05/19 07:51 Resp 16 04/05/19 07:51 BP 166/82 04/05/19 07:51 Pulse Ox 94 04/05/19 07:51 04/04/19 04/05/19 04/05/19 22:59 06:59 14:59 Intake Total 16.667 / 16.667 Output Total 300 / 300 Balance -283.333 / -283.333 Weight last 48 hrs Weight 100 lb Physical Exam Narrative: EXAM NARRATIVE: GENERAL: She appears comfortable at rest. There is slight slurring of the speech from the old stroke. HEENT: Exam within normal limits. [] NECK: Supple without jugular vein distention. The carotid upstroke is normal without bruits. BACK: Exam normal. LUNGS: Clear. HEART: Regular rate and rhythm. ABDOMEN: Benign without organomegaly or tenderness. EXTREMITIES: No edema. The left hand is purple and cold. She states this is chronic. I assume this is related to her old smoking and/or Raynaud's phenomenon. The left leg is absent above the knee. The right leg exhibits some dependent rubor along the bottom of the foot starting at the heel and extending to the toes. There are no open sores. She has no pulses in the femoral area, popliteal area or the foot. NEUROLOGIC: Exam normal. SKIN: The skin of the left hand is purple. There is dependent rubor of the bottom of the left foot and the toes. Data Other Data: Other data: EKG reveals sinus rhythm with a left atrial abnormality and an incomplete left bundle branch block. Duplex of the right lower extremity as mentioned above reveals no flow below the right iliac artery including the femoral artery and superficial femoral artery. The monophasic flow in the popliteal and the posterior tibial artery likely involves collateral flow. A&P Assessment and plan (1) History of myocardial infarction: Status: Acute Code(s): I25.2 - Old myocardial infarction (2) Hyperlipidemia: Status: Acute Code(s): E78.5 - Hyperlipidemia, unspecified (3) Lupus: Status: Acute Code(s): M32.9 - Systemic lupus erythematosus, unspecified (4) Essential hypertension: Status: Acute Code(s): I10 - Essential (primary) hypertension (5) Coronary artery sclerosis: Status: Inactive Code(s): I25.10 - Atherosclerotic heart disease of [place] coronary artery without angina pectoris (6) Acute hypoxemic respiratory failure: Status: Inactive Code(s): J96.01 - Acute respiratory failure with hypoxia (7) Presence of stent in LAD coronary artery: Status: Acute Code(s): Z95.5 - Presence of coronary angioplasty implant and graft (8) Ischemic leg pain: Status: Acute Code(s): I99.8 - Other disorder of circulatory system (9) Onychodystrophy: Status: Acute Code(s): L60.3 - Nail dystrophy (10) COPD (chronic obstructive pulmonary disease): Status: Acute Code(s): J44.9 - Chronic obstructive pulmonary disease, unspecified Additional A&P Information She has significant atherosclerosis on the right. We will schedule her for angiography tomorrow afternoon at around 1:00. I have instructed the nurses to let her eat today. Schedule not allow an angiogram today. I will stop the Lovenox tonight after the 2200 dose. The other medications can remain the same. By the looks of the duplex scan, there may not be anything we can do to improve the flow to her leg. She may well end up with an amputation of the right leg as well. 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
--- NOTE | 2019-04-05 13:11 | PC.CHAP ---
Pastoral Care Encounter/Spiritual Assessment Type of Contact [] Declined home theatre technician visit [] Patient/Family/Request visit [] Outpatient visit [] Follow-up visit [] Physician referral [] Code/Alert [x] Routine visit [] Staff referral [] Actively dying [] Patient sleeping [] Family support [] [] Out of room [] Palliative care [] [x] Receiving care in room [] Pre-surgical visit [] Trauma [] Long length of stay [] ICU visit [] Other: Relational/Emotional Strength [] Patient feels connected with others/family/visitors/staff [] Distress [] Loneliness/isolation [] Abandonment Spirituality of Patient [] Person of Isha [] Attends Yazidism of their Isha [] Believes in Prayer [] Reads Bible or Jehovah'S Witness materials [] There are Spiritual issues to be addressed Community Life Director Interventions [] Prayer [] Active listening [] Non-anxious presence [] Spiritual/emotional support [] Crisis/trauma care [] Spiritual counseling [] Bereavement support [] Provided bereavement packet [] Provided Bible/devotional materials [] Provided toy/stuffed animal, coloring book to patient or family member [] Provided Communion [] Anointing/[place] [] Salvation [] Completed spiritual assessment [] Other: Impact on Illness or Injury [] Angry [] Fearful [] Anxious [] Often cries [] Exhaustion [] Unable to work [] Unable to attend buddhist [] Unable to walk/stand [] Unable to read [] Unable to drive [] Unable to eat/drink [] Unable to sleep [] Unable to be with family [] Patient intubated [] Other: Summary Patient was busy with staff. Time spent with patient
--- NOTE | 2019-04-05 13:14 | PC.NURSE ---
Pt placed on bedpan at this time to attempt to urinate w/o any output thus far. Will notify physician
--- NOTE | 2019-04-05 13:25 | PC.NURSE ---
Pt w/o any urine output this shift. Bladder scan done. Noted >400 ml. Will notify physician of findings
--- NOTE | 2019-04-05 15:17 | P.PN_ITS ---
Subjective Subjective: Interval history: Overnight labs H&P reviewed. Patient was evaluated this morning by Dr. Watters from cardiology. Plan for lower extremity angiogram tomorrow. At this present time she states that her pain is improved. She denies any acute distress. Medications: Reviewed: Yes Vitals/I&O/Wt Last Vital Signs Temp 98.0 F 04/05/19 12:00 Pulse 59 L 04/05/19 12:00 Resp 16 04/05/19 12:00 BP 144/81 04/05/19 12:00 Pulse Ox 95 04/05/19 12:00 04/05/19 04/05/19 04/05/19 06:59 14:59 22:59 Intake Total 16.667 / 16.667 240 / 240 Output Total 300 / 300 Balance -283.333 / -283.333 240 / 240 Weight last 48 hrs Weight 45.359 kg Physical Exam Narrative: EXAM NARRATIVE: GEN: Awake, alert and oriented, no acute distress CVS: S1S@ N RS: CTA B/L except crackles over RUL Abd: Soft, nt/nd , bs+ HUMAN RESOURCES OPERATIONS SPECIALIST: no focal neuro deficits ext: Status post AKA of the left knee. Right foot appears deep red especially around the soles, no ulcers noted. I am unable to appreciate pulses. Urinary Catheter Management^: Carey: Cath Placed During This Visit: no Data : 04/05/19 06:15 04/05/19 07:22 A&P Assessment and plan (1) Ischemic leg pain: Status: Acute Code(s): I99.8 - Other disorder of circulatory system (2) Onychodystrophy: Status: Acute Code(s): L60.3 - Nail dystrophy Additional A&P Information Critical limb ischemia of the right leg: Pain is currently well controlled. Continue calcium lio, aspirin, statin, full dose therapeutic Lovenox every 12h, overnight dose to be held. n.p.o. after midnight for angiogram tomorrow. D5 half-normal fluids at 30 cc/h UTI with active symptoms of dysuria and frequency Continue ceftriaxone Patient had urinary retention with more than 400 cc of residual volume. Carey catheter was inserted. Coronary disease status post stent in LAD Aspirin and statin as above. She has a history of breakthrough seizures which he started having after brain aneurysm clipping Continue Keppra Patient is full code DVT prophylaxis not indicated currently she is on therapeutic Lovenox GI prophylaxis: Not indicated Attestations Medical Necessity Statement*: Admitted for critical limb ischemia, plan for angiogram tomorrow. 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
[2019-04-05] MEDS: amlodipine 10 mg Tablet PO (21:33)
[2019-04-05] MEDS: duloxetine 20 mg Capsule PO (21:33)
[2019-04-06] VITALS (39 sets, daily range): BP systolic 98–172; BP diastolic 56–94; PULSE 62–84; RESP 9–22; TEMP 36.6–37.2; O2SAT 90–97
[2019-04-06 07:13] LABS: Basophils # 0.1 10^3/uL (0.0-0.1); Basophils % 0.6 %; Eosinophils # 0.3 10^3/uL (0.0-0.8); Eosinophils % 2.3 %; Hematocrit 39.4 % (37.0-47.0); Hemoglobin 12.8 g/dL (11.5-15.3); Lymphocytes % 8.9 %; Mean Corpuscular HGB Conc 32.5 g/dL (30.0-36.0); Mean Corpuscular Hemoglobin 32.7 pg (28.0-34.0); Mean Corpuscular Volume 100.5 fL (81-99); Mean Platelet Volume 11.1 fL (7.4-10.4); Monocytes # 1.2 10^3/uL (0.2-0.9); Monocytes % 10.8 %; Neutrophils # 8.6 10^3/uL (1.8-7.7); Nucleated Red Blood Cells % 0 %; Platelet Count 181 10^3/cmm (130-400); Red Blood Count 3.92 10^6/uL (4.1-5.3); White Blood Count 11.2 10^3/uL (4.0-10.0)
[2019-04-06 07:29] LABS: Alanine Aminotransferase 96 U/L (0-33); Albumin Level 3.8 g/dL (3.5-5.2); Alkaline Phosphatase 192 IU/L (35-105); Aspartate Amino Transferase 184 U/L (0-32); Blood Urea Nitrogen 13 mg/dL (8-23); Calcium 9.6 mg/dL (8.5-10.5); Carbon Dioxide 24 mmol/L (22-29); Chloride 98 mmol/L (98-107); Creatinine Clr Calc Pharmacy 49.5327; Globulin 3.2 g/dL (1.3-4.6); Glomerular Filtration Rate 159.7 mL/min (90-130); Glucose 119 mg/dL (74-106); Sodium 132 mmol/L (136-145); Total Bilirubin 0.7 mg/dL (0.15-1.2)
[2019-04-06] MEDS: sodium chloride 0.9% 1,000 ML 50 ML IV (10:44)
[2019-04-06] MEDS: aspirin 81 mg EC Tablet PO (10:44)
[2019-04-06] MEDS: levETIRAcetam 500 mg Tablet PO ×2 (10:44→18:25)
[2019-04-06] MEDS: docusate sodium 100 mg Capsule PO (10:44)
[2019-04-06] MEDS: metoprolol tartrate 50 mg Tablet PO ×2 (11:40→18:27)
[2019-04-06] MEDS: diphenhydrAMINE 50 mg Capsule PO (12:30)
--- NOTE | 2019-04-06 12:46 | XACV_ITS ---
Ht: 163 cm Wt: 45 kg BSA: 1.42 m2 Any Known Allergies: Sulfa Gender: Female : 1950 Exam Type: Invasive Peripheral Vascular Procedure(s): Procedure Description: Peripheral Cath Diagnostic Procedure Procedure Description: Abdominal aortic angiography Procedure Description: Lower extremities' angiography Exam Priority: Routine Abdominal Diagnostic Findings The lower abdominal aorta is calcified and modestly diseased. The disease extends into the ostium of the right common iliac artery. Lower Extremity Diagnostic Findings This patient has severe lower extremity peripheral arterial disease. She has lupus among others. 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 She has now developed pain and discoloration of her foot on the right. Noninvasive studies suggested occlusion of the iliac, common femoral and superficial femoral artery on the right. There was monophasic flow in the popliteal artery and maybe monophasic flow in the posterior tibial on the right. She is Montezuma grade 2, category 5; Rody stage IV. On the left, the common femoral is patent but in the distal end of the common femoral there is an occlusion. There is no flow below this. Common femoral has a stent in place. There is a trickle of flow from the hypogastric artery on the left. On the right there is a 60% ostial common iliac artery stenosis. The vessel is then a completely occluded at the distal end of the common iliac. The hypogastric is patent on the right. The common femoral is occluded. The hypogastric provides collateral flow to the profunda femoris on the right which is patent. The superficial femoral artery on the right is occluded also but reconstitutes distally toward the origin of the popliteal. The collateral flow from this arises from the profunda femoris and to some degree from the hypogastric. One sees the distal SFA and popliteal which are relatively normal arteries. These are seen via collateral flow only. There is no antegrade flow below the knee. There appears to be some patency of the posterior tibial which is most likely seen by collaterals. The collaterals arise from the distal popliteal artery. Imaging is difficult because of a hip prosthesis with the shaft in the femur that extends all the way to the knee. There is also hardware in the proximal tibia. Conclusions Bilateral common iliac occlusions. On the right collateral flow arises from the hypogastric which fills the profunda femoris which in turn fills the distal SFA and popliteal on the right. All 3 antegrade arteries below the knee on the right are occluded. Some collateral flow to the posterior tibial is noted. Collaterals arise from the distal popliteal. Hemodynamic Data Phase:Rest AO : 147.0 mmHg / 53.0 mmHg ( 83.0 mmHg ) @ 7:16:00 AM Access Site Site: Left Femoral artery Sheath Size: 6 Fr Hemost... Method: Mechanical Compression Hemost... Success: Successful Procedure Details Findings Pre op diagnosis: PAD. Glidewire inserted. Glidewire inserted. Right leg runoff 10 ml for total of 30 ml. Medication's Wasted: Other = fentanyl 75 mcg. Medication's Wasted: Heparin = 1000 units. Procedure Consent Obtained. Pre-Procedure Time Out. Identified patient by full name and date of as verbalized by the patient/guarantor. Does the consent match the physician's order: Yes. Accurate & Complete Informed Consent: Yes. Inpatient/Outpatient History & Physical on Chart: Yes. If H&P is completed, is and addenduem needed: No; If yes, is the addendum complete: N/A. Visualize and Verify Site with Patient/Guarantor: N/A. Relevant Radiology Images available: N/A. Pre-op teaching completed and patient verbalized understanding. The risks, benefits, and alternatives of sedation and/or procedure were discussed by physician. The patient agrees to continue. Procedure started. Correct patient, site and procedure confirmed by cath team. PERRLA. 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 Lungs clear x 5 lobes. IV Site on Arrival: 20 gauge in the right forearm. IV Fluids: 0.9% NaCl at KVO. 0 mL infused prior to clinical laboratory technician. Pre Procedural Pulses: bilateral dorsalis pedis was Absent. Pre Procedural Pulses: bilateral posterior tibial was Absent. Oxygen started at 2liters/min via nasal canula. bilateral groins was prepped with chloroprep then draped in the usual sterile fashion. Baseline sample Acquired. HR: 57 BPM. Physician arrived. Equipment: Peripheral. Cardiac Cath Pack. ACIST Manifold Kit Model BT 2000. Heparinized Saline (2 units/mL), 1000 mL bag. Physician scrubbed in. Immediate Pre-Procedure Time Out. Correct Patient: Yes; Correct Procedure: Yes; Correct Site: Yes; Correct Patient Position: Yes; Correct Supplies: Yes; Dried Flammable Prep: Yes; Blood Products Available: N/A;. Lidocaine 1% infiltrated to the left groin. Arterial access obtained. Inventory is JJ 6F 11cm Lovely Plus Sheath. A SwipeStation 5F UF catheter 65cm was advanced over the wire and used for Abdominal aortogram with runoff. Abdominal aortogram performed in AP @ 10 mL/sec for a total of 30 mL. Catheter removed over the glide wire. A JJ 5F RIM 65 cm Diagnostic Catheter was advanced over the wire and used for Lower extremity arteriography. Wire out. Catheter removed over the glide wire. A 6FrFr IM catheter in over wire. Catheter removed over the glide wire. Physician scrubbed out. A Mechanical Compression was successful obtaining hemostatsis at the Left Femoral artery insertion site. Sheath(s) removed and manual pressure held until hemostasis was achieved. Sterile 4x4 and Op-site applied to the puncture site. No oozing or hematoma noted. Post sheath removal instructions were given and the patient verbalized understanding. Post Procedure: Pulses reassessed and unchanged. PERRLA. 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 No VTE prophylaxis required. Total IV fluids: 46.2 mL. Post-op diagnosis: critical limb ischemia. Complications: none. Estimated blood loss: 5mL-10mL. Contrast type used: Visipaque 320 mgI/mL, 200 mL bottle. Medication's Wasted: Lidocaine 1% = 10 mL. Medication's Wasted: Other = versed 1.5 mg. Procedure completed. Patient transferred by stretcher to CPRU. Vital chart was stopped. Procedure Medications Start: 1:06 PM Stop: 1:06 PM Medication: Versed Amount: 0.5 mg Route: I.V. Start: 1:06 PM Stop: 1:06 PM Medication: Fentanyl Amount: 25 mcg Route: I.V. I, the attending physician, have reviewed and verified all procedure medications. Yes, all medications given per verbal order History/Risk Factors Hypertension: Yes Dyslipidemia: No Peripheral Arterial Disease (PAD): Yes Myocardial Infarction (SC): Yes Obesity: No Renal Disease: No Prior Interventions PCI: Yes CABG: No Valve Surgery: No Report Signatures Finalized by:Dr. Barrera Watters MD on 04/06/2019 2:16:15 PM
[2019-04-06] MEDS: sodium chloride 0.9% 1,000 ML 100 ML IV (15:51)
--- NOTE | 2019-04-06 18:10 | P.PN_ITS ---
Subjective Subjective: Interval history: Patient was seen and examined prior to Genetic Supervisor procedure this morning. She had no new complaints at that time. No significant leg pain at the time of examination either. She has now undergone lower extremity catheterization this afternoon. Findings notable for bilateral common iliac occlusions. On the right collateral flow arises from the hypogastric which fills the profunda femoris which in turn fills the distal SFA and popliteal on the right. All 3 antegrade arteries below the knee on the right are occluded. Some collateral flow to the posterior tibial is noted. Collaterals arise from the distal popliteal. 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 Right foot appears deep red especially around the soles, unchanged since yesterday's exam Urinary Catheter Management^: Carey: Cath Placed During This Visit: no Data : 04/06/19 06:53 04/06/19 07:00 Micro: Microbiology 04/05/19 01:35 Urine Culture - Preliminary Urine,Clean Catch A&P Assessment and plan (1) Ischemic leg pain: Status: Acute Code(s): I99.8 - Other disorder of circulatory system (2) Onychodystrophy: Status: Acute Code(s): L60.3 - Nail dystrophy Additional A&P Information Critical limb ischemia of the right leg: Pain is currently well controlled. Continue aspirin 1 mg p.o. daily. Lovenox currently on hold post procedure. Continue atorvastatin 80 mg p.o. at bedtime Diet has been resumed. Status post angiogram today and results as noted above Awaiting further recommendations from cardiology. UTI with active symptoms of dysuria and frequency Continue ceftriaxone Patient had urinary retention with more than 400 cc of residual volume. Carey catheter was inserted. Coronary disease status post stent in LAD Aspirin and statin as above. Continue metoprolol. Amlodipine for blood pressure control She has a history of breakthrough seizures which he started having after brain aneurysm clipping Continue Keppra Patient is full code DVT prophylaxis : Currently full dose Lovenox on hold. GI prophylaxis: Not indicated Attestations Medical Necessity Statement*: Status post angiogram today for critical limb ischemia. 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
[2019-04-06] MEDS: duloxetine 20 mg Capsule PO (20:41)
[2019-04-06] MEDS: amlodipine 10 mg Tablet PO (20:41)
[2019-04-06] MEDS: atorvastatin 40 mg Tablet 80 MG PO (20:41)
[2019-04-07 04:00] VITALS: BP 118/57; PULSE 68; RESP 16; TEMP 37.2; O2SAT 93
[2019-04-07 05:11] LABS: Basophils # 0.1 10^3/uL (0.0-0.1); Basophils % 0.8 %; Eosinophils # 0.2 10^3/uL (0.0-0.8); Eosinophils % 1.9 %; Hematocrit 36.3 % (37.0-47.0); Lymphocytes # 1.4 10^3/uL (0.8-4.8); Mean Corpuscular HGB Conc 33.1 g/dL (30.0-36.0); Mean Corpuscular Hemoglobin 31.5 pg (28.0-34.0); Mean Corpuscular Volume 95.3 fL (81-99); Mean Platelet Volume 11.3 fL (7.4-10.4); Monocytes # 1.4 10^3/uL (0.2-0.9); Monocytes % 12.1 %; Neutrophils # 8.7 10^3/uL (1.8-7.7); Neutrophils % 72.9 %; Nucleated Red Blood Cells % 0 %; Platelet Count 195 10^3/cmm (130-400); Red Blood Count 3.81 10^6/uL (4.1-5.3); White Blood Count 11.9 10^3/uL (4.0-10.0)
[2019-04-07 05:28] LABS: Alanine Aminotransferase 53 U/L (0-33); Albumin Level 3.3 g/dL (3.5-5.2); Alkaline Phosphatase 186 IU/L (35-105); Anion Gap 15.3 (5-19); Aspartate Amino Transferase 47 U/L (0-32); Blood Urea Nitrogen 8 mg/dL (8-23); Calcium 9.2 mg/dL (8.5-10.5); Carbon Dioxide 23 mmol/L (22-29); Chloride 98 mmol/L (98-107); Creatinine Clr Calc Pharmacy 49.5327; Globulin 3.8 g/dL (1.3-4.6); Glomerular Filtration Rate 222.6 mL/min (90-130); Glucose 89 mg/dL (74-106); Potassium 3.3 mmol/L (3.5-5.1); Sodium 133 mmol/L (136-145); Total Bilirubin 0.9 mg/dL (0.15-1.2); Total Protein 7.1 g/dL (6.6-8.7)
[2019-04-07 07:21] VITALS: BP 173/86; PULSE 81; RESP 12; TEMP 36.5; O2SAT 91
--- NOTE | 2019-04-07 07:41 | PM.MISC ---
Miscellaneous Note Note: Yesterday I performed lower extremity angiography on Ms. Sandoval. The procedure was done from the left common femoral artery. Her left leg is absent above the knee. Unfortunately, she has a significant problem on the right also. Her common iliac artery is closed in its distal portion just at the takeoff of the hypogastric artery. The closure extends through the external iliac, common femoral, superficial femoral artery all the way down to near the proximal portion of the popliteal. In the pelvis, the hypogastric provides collaterals to the profunda femoris which in turn provides collaterals to the distal SFA. One sees the distal SFA and popliteal via these collaterals. Below the knee there are tiny remnants of the infrapopliteal vessels but all of them are closed. There are small collaterals which arise from the distal popliteal that fill what is most likely the posterior tibial artery. I spoke at length to the patient's , niece and the nieces daughter yesterday. My plan was to talk to the patient yesterday but she was too sleepy but due to the medications to comprehend the information. Therefore I came back this morning early to discuss the results with her. I do not think there is any possibility of revascularization with intervention. I am not certain that a surgical procedure can revascularize her leg. Dr. Caicedo is out of town until late tomorrow night. We will have him see her when he comes back. I explained this in detail to the patient this morning and answered what questions I could.
--- NOTE | 2019-04-07 10:01 | PM.PN ---
Subjective Subjective: Interval history: No significant leg pain. s/p LE angiogram yesterday. There is no possibility of revascularization with these results. Hb stable. Hemodynamically stable, SBP ranging between 160-170. CR normal, will resume home ARB today for better control. 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 Right foot appears deep red especially around the soles, unchanged since yesterday's exam Urinary Catheter Management^: Carey: Cath Placed During This Visit: no Data : 04/07/19 04:20 04/07/19 04:20 Micro: Microbiology 04/05/19 01:35 Urine Culture - Preliminary Urine,Clean Catch A&P Assessment and plan (1) Ischemic leg pain: Status: Acute Code(s): I99.8 - Other disorder of circulatory system (2) Onychodystrophy: Status: Acute Code(s): L60.3 - Nail dystrophy (3) COPD (chronic obstructive pulmonary disease): Status: Acute Code(s): J44.9 - Chronic obstructive pulmonary disease, unspecified (4) Essential hypertension: Status: Acute Code(s): I10 - Essential (primary) hypertension (5) Lupus: Status: Acute Code(s): M32.9 - Systemic lupus erythematosus, unspecified (6) Hyperlipidemia: Status: Acute Code(s): E78.5 - Hyperlipidemia, unspecified (7) Seizure disorder: Status: Acute Code(s): G40.909 - Epilepsy, unspecified, not intractable, without status epilepticus (8) Critical lower limb ischemia: Status: Acute Code(s): I99.8 - Other disorder of circulatory system Additional A&P Information Critical limb ischemia of the right leg: Pain is currently well controlled. Continue aspirin 81 mg p.o. daily. Resume lovenox 1mg/kg BID. Continue atorvastatin 80 mg p.o. at bedtime Status post angiogram yesetrday. No target for intervention. We will get vascular surgery consult with Dr. Caicedo. He is out of town returning tomorrow we will consult him upon his return. Until then patient can continue on full dose anticoagulation Correction made to previous notes. Previous notes state that patient was diagnosed with a UTI secondary to dysuria for which she received ceftriaxone. However on a thorough evaluation of her medication history I do not see any antibiotics that were administered. This has been confirmed with pharmacy as well. It is possible that patient's symptoms of dysuria were related to urinary retention for which she now has a Carey catheter in place. We will give a trial of voiding by taking out the catheter. She is currently afebrile. Has no further urinary complaints. Mild leukocytosis of 11.9 may be related to post procedure. Urine culture is negative to date. For now favor holding antibiotics unless clinical change. Coronary disease status post stent in LAD Aspirin and statin as above. Continue metoprolol. Amlodipine for blood pressure control. HTN: resume home dose of ARB. Cr stable after angiogram yesterday. She has a history of breakthrough seizures which he started having after brain aneurysm clipping Continue Keppra Patient is full code DVT prophylaxis : Currently full dose Lovenox GI prophylaxis: Not indicated Attestations Medical Necessity Statement*: Remains admitted for management of critical limb ischemia, pending vascular surgery evaluation. 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
[2019-04-07 11:33] VITALS: BP 139/74; BP 173/86; PULSE 88; RESP 19; TEMP 37.1; O2SAT 94
[2019-04-07] MEDS: enoxaparin 60 mg/0.6 mL Syringe 45 MG SUBCUT (11:33)
[2019-04-07] MEDS: losartan 50 mg Tablet 100 MG PO (11:33)
[2019-04-07] MEDS: aspirin 81 mg EC Tablet PO (11:34)
[2019-04-07] MEDS: metoprolol tartrate 50 mg Tablet PO ×2 (11:34→18:16)
[2019-04-07] MEDS: levETIRAcetam 500 mg Tablet PO ×2 (11:35→18:16)
--- NOTE | 2019-04-07 13:47 | PM.PN ---
Subjective Subjective: Interval history: Cardiology coverage This patient is admitted to the hospital with features of critical limb ischemia. She apparently had a above-knee amputation of the left lower extremity Few years ago. She presented with symptoms of resting pain in the right leg. She underwent a peripheral angiogram by Dr. Watters yesterday. She was found to have severe diffuse peripheral arterial disease in the right lower extremity with multiple areas of total occlusion and the collateral circulation. Based on the angiographic findings, percutaneous intervention was thought to be difficult. It was decided to optimize medical treatment. A surgical consultation also was thought to be appropriate. Medications: Medication Review Details: Current Medications Acetaminophen (Tylenol) 650 mg PO Q6H PRN PRN Reason: Mild/Mod Pain Or Temp >/= 101 Last Admin: 04/05/19 19:46 Dose: 650 mg Documented by: Amlodipine Besylate (Norvasc) 10 mg PO BEDTIME [facility] Last Admin: 04/06/19 20:41 Dose: 10 mg Documented by: Aspirin (Aspirin Ec) 81 mg PO DAILY [facility] Last Admin: 04/07/19 11:34 Dose: 81 mg Documented by: Atorvastatin Calcium (Lipitor) 80 mg PO BEDTIME [facility] Last Admin: 04/06/19 20:41 Dose: 80 mg Documented by: Docusate Sodium (Colace) 100 mg PO BID [facility] Last Admin: 04/06/19 18:23 Dose: Not Given Documented by: Enoxaparin Sodium (Lovenox) 45 mg SUBCUT Q12H [facility] Last Admin: 04/07/19 11:33 Dose: 45 mg Documented by: Hydromorphone HCl (Dilaudid Tab) 2 mg PO Q6H PRN PRN Reason: PAIN Last Admin: 04/05/19 23:31 Dose: 2 mg Documented by: Dextrose/Sodium Chloride (Dextrose 5%-Sod Chloride 0.45%) 1,000 mls @ 30 mls/hr IV .Q24H [facility] Last Admin: 04/05/19 02:22 Dose: 30 mls/hr Documented by: Levetiracetam (Keppra) 500 mg PO BID [facility] Last Admin: 04/07/19 11:35 Dose: 500 mg Documented by: Losartan Potassium (Cozaar) 100 mg PO DAILY [facility] Last Admin: 04/07/19 11:33 Dose: 100 mg Documented by: Metoprolol Tartrate (Lopressor) 50 mg PO BID [facility] Last Admin: 04/07/19 11:34 Dose: 50 mg Documented by: Morphine Sulfate (Morphine) 4 mg IVP Q4H PRN PRN Reason: SEVERE PAIN Ondansetron HCl (Zofran) 4 mg IVP Q6H PRN PRN Reason: NAUSEA AND VOMITING Vitals/I&O/Wt Last Vital Signs Temp 98.8 F 04/07/19 11:33 Pulse 88 04/07/19 11:33 Resp 19 H 04/07/19 11:33 BP 173/86 04/07/19 11:33 Pulse Ox 94 04/07/19 11:33 04/06/19 04/07/19 04/07/19 22:59 06:59 14:59 Intake Total 220 / 220 500 / 720 120 / 120 Output Total 1350 / 2000 400 / 400 Balance 220 / -430 -850 / -1280 -280 / -280 Physical Exam Narrative: EXAM NARRATIVE: GENERAL: The patient is alert and oriented times three. Not in any acute distress. HEENT: No significant pallor, icterus or lymphadenopathy.Oral cavity: There are no mucous membrane lesions. NECK: Trachea appears to be central. No masses noted. No JVD or thyromegaly appreciated. No carotid bruit RESPIRATORY: Chest is symmetrical. No intercostals muscle retraction or any accessory muscle activation. There is no chest wall tenderness. Breath sounds are heard bilaterally. No rales or rhonchi heard. No evidence of any consolidation. BREASTS: Deferred. HEART: The heart sounds are normal. No S3 or S4. Short systolic murmur in the left sternal border. No diastolic murmurs appreciated. No pericardial rub ABDOMEN: No vessel pulsations or distention. No tenderness. No organomegaly appreciated. Bowel sounds are normally heard. : Deferred. RECTAL: Deferred. LYMPHATIC: No lymphadenopathy noted in the neck or groin. EXTREMITIES: No edema or cyanosis. Above-knee amputation on the left side. Diffuse redness in the right foot. The posterior tibial and dorsalis pedis pulses are nonpalpable. lMUSCULOSKELETAL: No acute joint deformities or swelling SKIN: There are no significant scars or skin rash noted. NEUROPSYCHIATRIC: The patient is alert and oriented x3. Appears to be in a good mood. No tremors or rigidity noted. Urinary Catheter Management^: Carey: Cath Placed During This Visit: no Data : 04/07/19 04:20 04/07/19 04:20 Micro: Microbiology 04/05/19 01:35 Urine Culture - Final Urine,Clean Catch A&P Assessment and plan (1) Critical lower limb ischemia: Currently the patient has no leg pain at rest. The peripheral angiogram findings and his implications were once again discussed. Patient is wanting to go home and watch Cenoplex. If she continues remain stable, may be discharged home from a cardiac standpoint. The hypokalemia need to be reevaluated. I will start the patient on Plavix 300 mg p.o. now followed by 75 mg p.o. daily Status: Acute Code(s): I99.8 - Other disorder of circulatory system (2) Atherosclerotic heart disease of [place] coronary artery without angina pectoris: Patient's coronary artery disease seems to be stable. She denies any specific symptoms at this time. May continue on the current medications. Status: Acute Code(s): I25.10 - Atherosclerotic heart disease of [place] coronary artery without angina pectoris (3) Essential hypertension, benign: Patient is currently normotensive. May continue on the current medications. Status: Acute Code(s): I10 - Essential (primary) hypertension (4) CVA (cerebral vascular accident): Patient has some residual speech disturbance. No new deficits. May continue on the current medicines. Status: Acute Qualifiers: CVA mechanism: unspecified Qualified Code(s): I63.9 - Cerebral infarction, unspecified Code(s): I63.9 - Cerebral infarction, unspecified (5) Hypokalemia: Her potassium was 3.3. This needs to be supplemented. Status: Acute Code(s): E87.6 - Hypokalemia Additional A&P Information If she continues to remain stable with the Plavix, after correcting the potassium, it may be appropriate to discharge her home. This was discussed with Dr. Cordon. 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
[2019-04-07] MEDS: clopidogrel 300 mg Tablet PO (14:53)
--- NOTE | 2019-04-07 14:59 | DCPLANNER ---
Pg 2 of IM explained to and signed by pt. She was not familiar with it but her at bedside sure is. No questions, copy provided.
[2019-04-07 15:12] VITALS: BP 146/77; PULSE 70; RESP 17; TEMP 36.2; O2SAT 98
[2019-04-07 16:00] VITALS: BP 146/77; PULSE 90; RESP 17; TEMP 36.2; O2SAT 98
--- NOTE | 2019-04-07 16:09 | P.DS_ITS ---
Discharge Providers Date of Admission: 04/04/19 22:28 Date of Discharge: Date of Discharge: April 07, 2019 Attending Provider at Admission: Rafiq Turcios MD Attending Provider at Discharge: Bette Cordon MD Primary Care Provider: Jakob Nash MD Diagnoses at Discharge Discharge Diagnosis (1) Critical lower limb ischemia: Status: Acute (2) Atherosclerotic heart disease of [place] coronary artery without angina pectoris: Status: Acute (3) Essential hypertension, benign: Status: Acute (4) CVA (cerebral vascular accident): Status: Acute Qualifiers: CVA mechanism: unspecified Qualified Code(s): I63.9 - Cerebral infarction, unspecified (5) Hypokalemia: Status: Acute Reason for Visit Reason for Visit: Reason For Visit: right leg pain Hospital Course Discharge Summary: please refer to my progress note for today. Interim events : patient was restarted on lovenox and planned to undergo vascular surgery consult on Tuesday, however she would like to go home. States that her limb has been in this shape for several days now, it's not new and she will look out for signs of worsening. Lovenox has been discontinued at discharge. Instead she was switched to Plavix 75mg po daily after loading dose of 300mg and will return next week to See Dr. Caicedo as an outpatient. Above was discussed with Dr. petty. 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 Routin e Exams 04/06/19 12:46 [place] [id number] Urge nt Ultrasound 04/04/19 19:30 Completed Labs from last 24 hours 04/07/19 04/07/19 04:20 04:20 WBC 11.9 H RBC 3.81 L Hgb 12.0 Hct 36.3 L MCV 95.3 D MCH 31.5 MCHC 33.1 RDW 14.0 Plt Count 195 MPV 11.3 H Neut % (Auto) 72.9 Lymph % (Auto) 12.0 [place] % (Auto) 12.1 Eos % (Auto) 1.9 Baso % (Auto) 0.8 Neut # (Auto) 8.7 H Lymph # (Auto) 1.4 [place] # (Auto) 1.4 H Eos # (Auto) 0.2 Baso # (Auto) 0.1 Nucleated RBC % (a uto) 0 Nucleated RBCs # 0.0 Sodium 133 L Potassium 3.3 L Chloride 98 Carbon Dioxide 23 Anion Gap 15.3 BUN 8 Creatinine 0.3 L GFR Calculation 222.6 H Glucose 89 Calcium 9.2 Total Bilirubin 0.9 AST 47 H ALT 53 H Alkaline Phosphata se 186 H Total Protein 7.1 Albumin 3.3 L Globulin 3.8 Vitals: Last Vital Signs Temp 97.1 F L 04/07/19 15:12 Pulse 70 04/07/19 15:12 Resp 17 04/07/19 15:12 BP 146/77 04/07/19 15:12 Pulse Ox 98 04/07/19 15:12 Discharge Plan Discharge Patient Disposition: Home, Self-Care Condition: Stable Prescriptions: New acetaminophen 325 mg Tablet 650 mg PO Q6H PRN (Reason: Mild/Mod Pain Or Temp >/= 101) Qty: 0 RF: 0 atorvastatin 40 mg Tablet 80 mg PO BEDTIME Qty: 30 RF: 0 clopidogrel [Plavix] 75 mg tablet 75 mg PO DAILY Qty: 30 RF: 0 Continued PODUS BOOT 1 unit as directed DAILY 99 Days Qty: 1 RF: 0 Lopressor 100 mg tablet 100 mg PO BEDTIME RF: 0 Keppra 500 mg tablet 500 mg PO BID RF: 0 Aspirin Low Dose 81 mg Tablet,Delayed Release (Dr/Ec) 81 mg PO DAILY RF: 0 Norvasc 10 mg tablet 10 mg PO BEDTIME RF: 0 DOK 100 mg capsule 100 mg PO BID RF: 0 Benicar 40 mg tablet 40 mg PO BEDTIME RF: 0 Cymbalta 20 mg capsule,delayed release(DR/EC) 20 mg PO BEDTIME RF: 0 Women's Multivitamin 18 mg iron-400 mcg-500 mg Tablet 1 tab PO DAILY RF: 0 Discharge Orders: Discharge Order (Routine); Ordered 04/07/19 Ordered By: Bette Cordon Referrals: Yfn Caicedo MD [Physician] - 4-7 days Discharge Diet: Usual diet and Cardiac Discharge Activity: Resume usual activity Discharge Attestations Time Spent in Discharge Care*: less than 30 min Quality Metrics Clinical Quality Measures During this hospital stay, did patient experience: None Coding Level of Care Code Acute Surface Grinder Tender for Chg Fwd Diagnoses Critical lower limb ischemia I99.[address] heart disease of [place] coronary artery without angina pectoris I25.10 Essential hypertension, benign I10 CVA (cerebral vascular accident) I63.9 CVA mechanism: unspecified Hypokalemia E87.6
[2019-04-07 18:05] VITALS: BP 146/77; PULSE 90; RESP 17; TEMP 36.2; O2SAT 98
== END 2019-04-07 18:59 | disposition home or self-care (01) | DRG 299 ==
LOC: ER 19:30 → MEDSURG 22:56 → CSU 04-06 14:52
PROVIDERS: Internal Medicine Cardiovascular Disease; Admitting Provider Internal Medicine; Emergency Provider Emergency Medicine; Family Provider Internal Medicine; PCP Internal Medicine; Visit Provider Student in an Organized Health Care Education/Training Program
PROC: B4101ZZ Fluoroscopy of Abdominal Aorta using Low Osmolar Contrast (ICD-10-PCS; principal; 2019-04-06 13:00)
DX: I74.5 Embolism and thrombosis of iliac artery (principal); I63.9 Cerebral infarction, unspecified; N39.0 Urinary tract infection, site not specified; I99.8 Other disorder of circulatory system; I25.10 Atherosclerotic heart disease of native coronary artery without angina pectoris; L60.3 Nail dystrophy; I73.00 Raynaud's syndrome without gangrene; E87.6 Hypokalemia; I10 Essential (primary) hypertension; Z79.82 Long term (current) use of aspirin; I73.9 Peripheral vascular disease, unspecified; Z89.612 Acquired absence of left leg above knee; Z95.5 Presence of coronary angioplasty implant and graft; Z87.891 Personal history of nicotine dependence; M06.9 Rheumatoid arthritis, unspecified; J44.9 Chronic obstructive pulmonary disease, unspecified; I25.2 Old myocardial infarction; M81.0 Age-related osteoporosis without current pathological fracture; D63.8 Anemia in other chronic diseases classified elsewhere; R56.9 Unspecified convulsions
CPT/HCPCS: 12345; 36415; 51702; 51798; 75625; 75710; 80048; 80053; 81001; 82550; 83605; 83735; 85025; 85610; 85730; 87086; 93005; 93922; 93926; 96360; 96372; 96374; 99284; A9270; C1769; C1887; C1894; J1170; J1644; J1650; J2001; J2250; J2405; J3010; J7030; J7799; Q0163; Q9967

== ENCOUNTER 2019-04-17 21:41 | Inpatient (IN) | payer MEDICARE, OTHER, SELFPAY ==
[2019-04-17 21:42] VITALS: BP 98/60; PULSE 69; RESP 20; TEMP 36.4; O2SAT 96; BMI 18.8
--- NOTE | 2019-04-17 21:47 | XRR_ITS ---
PROCEDURE INFORMATION: Exam: XR Chest, 1 View Exam date and time: 04/17/2019 10:37 PM Age: 68 years old Clinical indication: Chest pain. TECHNIQUE: Imaging protocol: XR of the chest Views: 1 view. COMPARISON: CR Chest 1 [place] [id number] 07/26/2017 12:38 AM FINDINGS: Lungs: No focal peripheral lung consolidation, air bronchogram formation, or silhouette sign. Pleural space: No pleural effusion. No pneumothorax. Heart/Mediastinum: The cardiac silhouette is not enlarged. The mediastinal contours are normal. Vasculature: The thoracic aorta is atherosclerotic and tortuous. Bones/joints: Multiple right rib fractures, age uncertain. Old right humeral surgical neck fracture which has healed with deformity. Bilateral glenohumeral joint degeneration. Prior compression injuries at the thoracolumbar junction. Other findings: Vague opacities in the mid and lower left hemithorax which probably represent summation shadows. XR/XR chest 1V portable [id number] IMPRESSION: No heart failure or definite sign for pneumonia. As clinically directed, further evaluation with CT CHEST may be beneficial.
--- NOTE | 2019-04-17 21:47 | CTR_ITS ---
PROCEDURE INFORMATION: Exam: CT Abdomen And Pelvis Without Contrast Exam date and time: 04/17/2019 9:50 PM Age: 68 years old Clinical indication: Other: Vaginal bleeding; Prior surgery; Surgery date: 6+ months; Surgery type: Cholecystectomy; Additional info: Vag bleeding TECHNIQUE: Imaging protocol: Computed tomography of the abdomen and pelvis without contrast. Total DLP: 567.2 mGy-cm Radiation optimization: All CT scans at this facility use at least one of these dose optimization techniques: automated exposure control; mA and/or kV adjustment per patient size (includes targeted exams where dose is matched to clinical indication); or iterative reconstruction. COMPARISON: CR Pelvis AP 1 or 2 views* [id number] 07/13/2012 7:19 PM FINDINGS: Lungs: Mild atelectasis. Coronary artery, mitral annulus, and aortic valvular calcifications. Liver: Calcified granulomas in the liver. Gallbladder and bile ducts: Cholecystectomy. Mild prominence of the bile ducts is most likely reservoir effect. Pancreas: Normal. No ductal dilation. Spleen: Calcified granulomas in the spleen. Adrenals: Normal. No mass. Kidneys and ureters: 3 mm nonobstructing left renal calculus. Small right renal cortical cysts. Stomach and bowel: Small air-fluid levels throughout the small bowel without obstruction. The colon and stomach are unremarkable Appendix: No evidence of appendicitis. Intraperitoneal space: Unremarkable. No free air. No significant fluid collection. Vasculature: Severe diffuse atherosclerotic calcifications. Stent in the distal aorta, extending into the left common iliac artery. Lymph nodes: Unremarkable. No enlarged lymph nodes. Bladder: Unremarkable as visualized. Reproductive: Unremarkable as visualized. Bones/joints: Intramedullary joann and screw in the proximal right femur, transversing a healed intertrochanteric fracture. Lumbar leftward curvature and degenerative changes. T10, T12, L3, L4, and L5 compression fractures. Soft tissues: Unremarkable. CT/CT abdomen pelvis wo con [id number] IMPRESSION: 1. No acute abnormality identified in the abdomen or pelvis. 2. Small air-fluid levels in the small bowel most likely represents ileus or enteritis. 3. Nonobstructing left renal calculus. 4. Severe atherosclerotic disease. 5. Multiple thoracic and lumbar compression fractures. Radiation Dose CTDIVOL = (mGy): DLP = 567.2 (mGy-cm)
--- NOTE | 2019-04-17 21:48 | ECG_ITS ---
Measurements Intervals [place] Rate: 78 P: 62 TX: 132 QRS: -47 QRSD: 156 T: 107 QT: 409 QTc: 466 SINUS RHYTHM POSSIBLE LEFT ATRIAL ENLARGEMENT [-0.1mV P WAVE IN V1/V2] LEFT AXIS DEVIATION [QRS AXIS < -30] LEFT BUNDLE BRANCH BLOCK [120+ ms QRS DURATION, 80+ ms Q/S IN V1/V2, 85+ ms R IN I/aVL/V5/V6] Compared to ECG 04/04/2019 19:46:34 No significant changes Electronically Signed On 04-18-2019 20:53:28 INJECTION MOLDING ENGINEER by Josefa Ramirez M.D. [email or web address]
--- NOTE | 2019-04-17 21:53 | ED_ITS ---
HPI - Weakness General: Chief complaint: Vaginal Bleeding Stated complaint: BLEEDING VAG Time Seen by Provider: 04/17/19 21:43 Source: patient, family and EMS Mode of arrival: EMS Limitations: no limitations History of Present Illness: HPI Narrative: 68-year-old female who has extensive history. She has a history of coronary artery disease has a history of peripheral vascular disease as well. Patient had a left [id number] amputation and was recently admitted for ischemia to right lower leg. She is seen by Ryder and is seeing outpatient to see if she is a candidate for possible interventions. Per patient has had generalized weakness throughout the day. He states she does have a history of seizures and sometimes will be weak if she had a seizure. He is unsure if she did though. He states that he did notice some bleeding from her vagina though today and had clots. Patient also has had diarrhea. She has no bleeding at this time and had no blood in her stool. She does not Radha week. Her blood pressure and heart rate with EMS has been normal. She is on Plavix and no other blood thinners. Complaint: generalized weakness Onset (ago): day(s) Duration: constant Location: generalized Relieving factors: none Exacerbating factors: none Associated symptoms: Denies chest pain, chills, dysuria, easy bruising, fever(s), headache(s), nausea or vomiting Review of Systems Const: Reports: fatigue; Denies: fever, chills, body aches or change in appetite Eyes: Denies: blurry vision or eye discomfort ENMT: Denies: throat pain or dental pain Card: Denies: chest pain Resp: Denies: shortness of breath GI: Denies: abdominal pain, nausea, vomiting or diarrhea : Reports: vaginal bleeding; Denies: painful urination Musc: Denies: neck pain or back pain Skin/Breast: Denies: rash Neuro: Denies: headache Psych: Denies: depression Jad/Lymph: Denies: easy bruising All/Imm: Denies: hives PFSH ED PFSH: Statuses (acute, chronic, etc) shown below reflect problem list status as previously entered and may not be historically accurate Medical History (Updated 04/18/19 @ 02:28 by Kolby Low MD) Above knee amputation of left lower extremity Aftercare following right hip joint replacement surgery Anemia of chronic disease Atherosclerotic heart disease of [place] coronary artery without angina pectoris Brain aneurysm COPD (chronic obstructive pulmonary disease) Coronary artery disease CVA (cerebral vascular accident) (~04/05/19) Essential hypertension Essential hypertension, benign History of left above knee amputation History of myocardial infarction Hyperlipidemia Onychodystrophy Osteoporosis Peripheral vascular disease Presence of stent in LAD coronary artery Raynaud phenomenon Rheumatoid arthritis Seizure disorder SLE (systemic lupus erythematosus related syndrome) Tobacco abuse, in remission Vitamin D deficiency Surgical History Hx of cholecystectomy S/P coil embolization of cerebral aneurysm Social History Smoking and tobacco status: former smoker Alcohol intake: never Caregiver/support person: Yes Lives independently: No Household members: spouse Housing: House Marital status: Physical Exam Const: COMMON NORMALS: no apparent distress and oriented x3 GENERAL APPEARANCE: lethargic and ill appearing (chronically ill appearing) ORIENTATION/CONSCIOUSNESS: Yes lethargic HENMT: COMMON NORMALS: normocephalic and head/scalp atraumatic HEAD & SCALP: normocephalic and atraumatic Eye: COMMON NORMALS: PERRL and EOMs intact bilaterally PUPIL: Yes PERRL Neck/C-Spine: COMMON NORMALS: full ROM and supple Chest: COMMONS NORMALS: inspection of chest normal and palpation of chest normal Resp: COMMON NORMALS: normal respiratory effort, no retractions, no use of accessory muscles and clear to auscultation bilaterally AUSCULTATION: clear to auscultation bilaterally Cardio: COMMON NORMALS: regular rate, regular rhythm and no murmurs RATE: regular rate RHYTHM: regular rhythm GI: COMMON NORMALS: normal to inspection, nondistended, normoactive bowel sounds, soft to palpation, non-tender and no masses PALPATION: Yes soft : OTHER: diarrhea currently present. small amount of dried blood at vagina Extremity: NARRATIVE EXTREMITY EXAM: above knee amputation to left leg Neuro: COMMON NORMALS: oriented x3, moves all extremities and no focal motor deficits SENSORIUM/ORIENTATION: Yes lethargic Psych: COMMON NORMALS: mental status grossly normal, thought process normal and cooperative THOUGHT PROCESS: normal thought process Skin: COMMON NORMALS: no rashes or lesions noted and no wounds GENERAL SKIN EXAM: no rashes or lesions noted Course Vital Signs: Vital signs: Vital Signs Temperature 97.6 F 04/17/19 21:42 Pulse Rate 68 04/18/19 01:00 Respiratory Rate 13 04/18/19 01:00 Blood Pressure 111/57 04/18/19 01:00 Pulse Oximetry 98 04/18/19 01:00 MDM - Weakness MDM Narrative: Medical decision making narrative: Patient presents here with generalized weakness along with hematuria and has a hemorrhagic cystitis. Patient does have an elevated white count. Patient blood pressure here is normal and has no signs of shock. I spoke to hospitalist and will admit. Patient CT abdomen is negative. Lab Data: Labs: Lab Results 04/17/19 04/17/19 04/17/19 Range/Units 21:10 21:10 21:10 WBC 20.3 H (4.0-10.0) 10^3/ uL RBC 4.09 L (4.1-5.3) 10^6/u L Hgb 12.6 (11.5-15.3) g/dL Hct 38.9 (37.0-47.0) % MCV 95.1 (81-99) fL MCH 30.8 (28.0-34.0) pg MCHC 32.4 (30.0-36.0) g/dL RDW 13.3 (12.1-15.1) % Plt Count 334 (130-400) 10^3/c mm MPV 10.1 (7.4-10.4) fL Neut % (Auto) 82.7 % Lymph % (Auto) 6.1 % [place] % (Auto) 9.5 % Eos % (Auto) 0.2 % Baso % (Auto) 0.6 % Neut # (Auto) 16.8 H (1.8-7.7) 10^3/u L Lymph # (Auto) 1.2 (0.8-4.8) 10^3/u L [place] # (Auto) 1.9 H (0.2-0.9) 10^3/u L Eos # (Auto) 0.1 (0.0-0.8) 10^3/u L Baso # (Auto) 0.1 (0.0-0.1) 10^3/u L Nucleated RBC % (a uto) 0 % Nucleated RBCs # 0.0 /100WBC PT 14.30 H (10.5-13.3) SECO NDS INR 1.07 (0.8-1.2) Sodium 130 L (136-145) mmol/L Potassium 3.8 (3.5-5.1) mmol/L Chloride 92 L (98-107) mmol/L Carbon Dioxide 21 L (22-29) mmol/L Anion Gap 20.8 H (5-19) BUN 14 (8-23) mg/dL Creatinine 0.8 (0.5-0.9) mg/dL GFR Calculation 71.8 L (90-130) mL/min Glucose 143 H (65-115) mg/dL Lactic Acid (Sepsi s) (0.5-2.2) mmol/L Calcium 9.8 (8.5-10.5) mg/dL Total Bilirubin 0.7 (0.15-1.2) mg/dL AST 21 (0-32) U/L ALT 18 (0-33) U/L Alkaline Phosphata se 159 H (35-105) IU/L Total Protein 7.8 (6.6-8.7) g/dL Albumin 3.8 (3.5-5.2) g/dL Globulin 4.0 (1.3-4.6) g/dL TSH 6.56 H (0.27-4.20) uIU/ mL Urine Color (Yellow) Urine Appearance (CLEAR) Urine pH (5-7) Ur Specific Gravit y (1.005-1.030) Urine Protein (Negative) Urine Glucose (UA) (Normal) Urine Ketones (Negative) Urine Occult Blood (Negative) Urine Nitrate (Negative) Urine Bilirubin (NEGATIVE) Urine Urobilinogen (Negative) mg/dL Ur Leukocyte Raina ase (Negative) Urine RBC (0-2) /hpf Urine WBC (0-5) /hpf Ur Squamous Epith Cells (0-5) Urine Bacteria (NONE) 04/17/19 04/18/19 Range/Units 21:10 00:14 WBC (4.0-10.0) 10^3/ uL RBC (4.1-5.3) 10^6/u L Hgb (11.5-15.3) g/dL Hct (37.0-47.0) % MCV (81-99) fL MCH (28.0-34.0) pg MCHC (30.0-36.0) g/dL RDW (12.1-15.1) % Plt Count (130-400) 10^3/c mm MPV (7.4-10.4) fL Neut % (Auto) % Lymph % (Auto) % [place] % (Auto) % Eos % (Auto) % Baso % (Auto) % Neut # (Auto) (1.8-7.7) 10^3/u L Lymph # (Auto) (0.8-4.8) 10^3/u L [place] # (Auto) (0.2-0.9) 10^3/u L Eos # (Auto) (0.0-0.8) 10^3/u L Baso # (Auto) (0.0-0.1) 10^3/u L Nucleated RBC % (a uto) % Nucleated RBCs # /100WBC PT (10.5-13.3) SECO NDS INR (0.8-1.2) Sodium (136-145) mmol/L Potassium (3.5-5.1) mmol/L Chloride (98-107) mmol/L Carbon Dioxide (22-29) mmol/L Anion Gap (5-19) BUN (8-23) mg/dL Creatinine (0.5-0.9) mg/dL GFR Calculation (90-130) mL/min Glucose (65-115) mg/dL Lactic Acid (Sepsi s) 2.5 H (0.5-2.2) mmol/L Calcium (8.5-10.5) mg/dL Total Bilirubin (0.15-1.2) mg/dL AST (0-32) U/L ALT (0-33) U/L Alkaline Phosphata se (35-105) IU/L Total Protein (6.6-8.7) g/dL Albumin (3.5-5.2) g/dL Globulin (1.3-4.6) g/dL TSH (0.27-4.20) uIU/ mL Urine Color Red (Yellow) Urine Appearance Cloudy (CLEAR) Urine pH 6.5 (5-7) Ur Specific Gravit y 1.010 (1.005-1.030) Urine Protein 3+ H (Negative) Urine Glucose (UA) Norm (Normal) Urine Ketones Negative (Negative) Urine Occult Blood 3+ H (Negative) Urine Nitrate Negative (Negative) Urine Bilirubin Neg (NEGATIVE) Urine Urobilinogen Norm (Negative) mg/dL Ur Leukocyte Raina ase 1+ H (Negative) Urine RBC Too numerous to c nt H (0-2) /hpf Urine WBC 40-55 H (0-5) /hpf Ur Squamous Epith Cells 0-4 H (0-5) Urine Bacteria 3+ H (NONE) Imaging Data^: CXR: Attestation: I personally reviewed and interpreted this imaging study as follows: My impression: no acute abnormality CT Head: Radiologist's impression: PROCEDURE INFORMATION: Exam: CT Head Without Contrast Exam date and time: 04/17/2019 9:56 PM Age: 68 years old Clinical indication: Weakness, extremity; Bilateral; Prior surgery; Surgery date: 6+ months; Surgery type: Coil embolization aneurysm; Patient HX: HX prior CVA TECHNIQUE: Imaging protocol: Computed tomography of the head without contrast. Total DLP: 818.5 mGy-cm Radiation optimization: All CT scans at this facility use at least one of these dose optimization techniques: automated exposure control; mA and/or kV adjustment per patient size (includes targeted exams where dose is matched to clinical indication); or iterative reconstruction. COMPARISON: CT head wo con* [id number] 07/25/2017 11:49 PM FINDINGS: Brain: Moderate diffuse cortical volume loss. Moderate patchy hypodensities scattered throughout supratentorial periventricular and subcortical white. Old encephalomalacia in the right parietal lobe, bilateral occipital lobes, anterior tip of the right temporal lobe, and left cerebellum. Ventricles: Normal. No ventriculomegaly. Bones/joints: Right temporal craniotomy defect. Sinuses: Visualized sinuses are unremarkable. No fluid levels. Mastoid air cells: Visualized mastoid air cells are well aerated. Soft tissues: Unremarkable. Vasculature: Stable aneurysm clip in the right cavernous region. CT/CT head wo con* [id number] IMPRESSION: 1. No acute intracranial abnormality identified. 2. Multiple chronic cerebral and cerebellar infarcts. 3. Moderate microangiopathy. CT Abd/Pel: Radiologist's impression: Ordering Provider/Ordering MD: Kolby Low MD Date of Service: 04/17/19 Procedure(s): CT abdomen pelvis wo con [id number] Accession Number(s): [id number] Report Number: [id number] PROCEDURE INFORMATION: Exam: CT Abdomen And Pelvis Without Contrast Exam date and time: 04/17/2019 9:50 PM Age: 68 years old Clinical indication: Other: Vaginal bleeding; Prior surgery; Surgery date: 6+ months; Surgery type: Cholecystectomy; Additional info: Vag bleeding TECHNIQUE: Imaging protocol: Computed tomography of the abdomen and pelvis without contrast. Total DLP: 567.2 mGy-cm Radiation optimization: All CT scans at this facility use at least one of these dose optimization techniques: automated exposure control; mA and/or kV adjustment per patient size (includes targeted exams where dose is matched to clinical indication); or iterative reconstruction. COMPARISON: CR Pelvis AP 1 or 2 views* [id number] 07/13/2012 7:19 PM FINDINGS: Lungs: Mild atelectasis. Coronary artery, mitral annulus, and aortic valvular calcifications. Liver: Calcified granulomas in the liver. Gallbladder and bile ducts: Cholecystectomy. Mild prominence of the bile ducts is most likely reservoir effect. Pancreas: Normal. No ductal dilation. Spleen: Calcified granulomas in the spleen. Adrenals: Normal. No mass. Kidneys and ureters: 3 mm nonobstructing left renal calculus. Small right renal cortical cysts. Stomach and bowel: Small air-fluid levels throughout the small bowel without obstruction. The colon and stomach are unremarkable Appendix: No evidence of appendicitis. Intraperitoneal space: Unremarkable. No free air. No significant fluid collection. Vasculature: Severe diffuse atherosclerotic calcifications. Stent in the distal aorta, extending into the left common iliac artery. Lymph nodes: Unremarkable. No enlarged lymph nodes. Bladder: Unremarkable as visualized. Reproductive: Unremarkable as visualized. Bones/joints: Intramedullary joann and screw in the proximal right femur, transversing a healed intertrochanteric fracture. Lumbar leftward curvature and degenerative changes. T10, T12, L3, L4, and L5 compression fractures. Soft tissues: Unremarkable. CT/CT abdomen pelvis con [id number] IMPRESSION: 1. No acute abnormality identified in the abdomen or pelvis. 2. Small air-fluid levels in the small bowel most likely represents ileus or enteritis. 3. Nonobstructing left renal calculus. 4. Severe atherosclerotic disease. 5. Multiple thoracic and lumbar compression fractures. Discharge Plan Discharge Patient Disposition: Admitted As Inpatient Clinical Impression: Urinary tract infection Qualifiers: Urinary tract infection type: acute cystitis Hematuria presence: with hematuria Qualified Code(s): N30.01 - Acute cystitis with hematuria Condition: Stable Referrals: Jakob Nash MD [Primary Care Provider] - Coding Level of Care Code ED Emergency Medical Technician/Driver for Chg Fwd Exam Problem Focused
[2019-04-17 22:29] VITALS: BP 91/52; PULSE 69; RESP 20; O2SAT 96
[2019-04-17 22:42] LABS: Basophils # 0.1 10^3/uL (0.0-0.1); Basophils % 0.6 %; Eosinophils # 0.1 10^3/uL (0.0-0.8); Eosinophils % 0.2 %; Hematocrit 38.9 % (37.0-47.0); Hemoglobin 12.6 g/dL (11.5-15.3); Lymphocytes # 1.2 10^3/uL (0.8-4.8); Lymphocytes % 6.1 %; Mean Corpuscular HGB Conc 32.4 g/dL (30.0-36.0); Mean Corpuscular Hemoglobin 30.8 pg (28.0-34.0); Mean Corpuscular Volume 95.1 fL (81-99); Mean Platelet Volume 10.1 fL (7.4-10.4); Monocytes # 1.9 10^3/uL (0.2-0.9); Monocytes % 9.5 %; Neutrophils # 16.8 10^3/uL (1.8-7.7); Neutrophils % 82.7 %; Nucleated Red Blood Cells % 0 %; Platelet Count 334 10^3/cmm (130-400); Red Blood Count 4.09 10^6/uL (4.1-5.3); Red Cell Distribution Width 13.3 % (12.1-15.1); White Blood Count 20.3 10^3/uL (4.0-10.0)
[2019-04-17 22:54] LABS: Alanine Aminotransferase 18 U/L (0-33); Albumin Level 3.8 g/dL (3.5-5.2); Alkaline Phosphatase 159 IU/L (35-105); Anion Gap 20.8 (5-19); Aspartate Amino Transferase 21 U/L (0-32); Blood Urea Nitrogen 14 mg/dL (8-23); Calcium 9.8 mg/dL (8.5-10.5); Carbon Dioxide 21 mmol/L (22-29); Chloride 92 mmol/L (98-107); Glomerular Filtration Rate 71.8 mL/min (90-130); Glucose 143 mg/dL (65-115); Potassium 3.8 mmol/L (3.5-5.1); Sodium 130 mmol/L (136-145); Thyroid Stimulating Hormone 6.56 uIU/mL (0.27-4.20); Total Bilirubin 0.7 mg/dL (0.15-1.2); Total Protein 7.8 g/dL (6.6-8.7)
[2019-04-17 22:57] LABS: INR 1.07 (0.8-1.2)
[2019-04-17 23:06] VITALS: PULSE 66; RESP 14; O2SAT 97
[2019-04-17 23:10] LABS: Lactic Acid level (Lactate) 2.5 mmol/L (0.5-2.2)
[2019-04-18] VITALS (19 sets, daily range): BP systolic 100–149; BP diastolic 50–76; PULSE 63–96; RESP 13–23; TEMP 36.3–38.1; O2SAT 92–98
[2019-04-18 00:27] LABS: Bilirubin Urine Neg (NEGATIVE); Blood Urine 3+ (Negative); Glucose Urine UA Norm (Normal); Ketones Urine Negative (Negative); Leukocyte Esterase Urine 1+ (Negative); Nitrate Urine Negative (Negative); Protein Urine 3+ (Negative); Urine Appearance Cloudy (CLEAR); Urine Color Red (Yellow); Urobilinogen Urine Norm (Negative); pH Urine 6.5 (5-7)
[2019-04-18 00:32] LABS: RBC Urine TOO NUMEROUS TO CNT /hpf (0-2)
[2019-04-18 00:33] LABS: Add Urine Culture? Yes; Bacteria Urine 3+; Squamous Epithelial Cell Urine 0-4 (0-5); WBC Urine 40-55 /hpf (0-5)
[2019-04-18] MEDS: sodium chloride 0.9% 1,000 ML 999 ML IV (00:54)
[2019-04-18] MEDS: cefTRIAXone 1,000 MG in sodium chloride 0.9% (plus) 50 ML 100 MG IV (00:55)
--- NOTE | 2019-04-18 03:15 | P.HP_ITS ---
Providers/Chief Complaint Primary Care Provider: Jakob Nash MD Chief Complaint: BLEEDING VAG History of Present Illness Stefany Sandoval is a 68 year old female with multiple medical problems who presented to the emergency room with chief complaint of bright red blood. She thought she was having vaginal bleeding. Her assist her at home and noticed the blood coming from the vaginal area when moving the her. She denies any dysuria, urinary frequency. Symptoms started tonight. No reports of any fever. No nausea or vomiting. She did have some loose stools this evening which is unusual for her. She was recently hospitalized with critical limb ischemia. During that hospital stay she had significant urinary retention and a Carey catheter was replaced. The catheter was removed the last day or the day prior to her being discharged. She was discharged on April 07. She has continued to have intermittent episodes of urinary retention but usually she is able to go after a while. In the emergency room tonight, the emergency room physician evaluated her and noted that the blood was in fact coming from her urethra. No vaginal blood was noted. A catheterized urine specimen was sent for evaluation and showed too numerous to count red blood cells, leukocyte esterase, and 3+ bacteria. White count was 20,000. Nitrates were negative. She received a dose of Rocephin. Patient has multiple comorbid conditions and is at risk for rapid clinical decline. She is being admitted for further treatment and monitoring. She is on Plavix and aspirin but has not been on any other form of blood thinner or antiplatelet agent since discharge. The Plavix was continued due to the peripheral artery disease present. Patient was treated for possible UTI during last hospital stay. Urine culture from April 05 was no growth final. Review of Systems Const: Reports: chills and fatigue; Denies: fever or diaphoresis ENMT: Reports: dry mouth Card: Denies: chest pain or palpitations Resp: Reports: shortness of breath GI: Reports: diarrhea; Denies: abdominal pain, nausea or vomiting : Reports: urinary hesitancy, urinary dribbling and blood in urine; Denies: difficulty urinating, painful urination or urinary frequency Musc: Reports: extremity pain and muscle weakness Skin/Breast: Reports: itching Neuro: Denies: headache Jad/Lymph: Denies: easy bruising Medications/Allergies Allergies Allergy/AdvReac Type Severity Reaction Status Date / Time Sulfa (Sulfonamide Allergy Unknown Unknown Verified 03/13/19 14:07 Antibiotics) Additional Medication Information Additional Medication Information: Her medications are reviewed and are the same as at discharge last time and include Tylenol, aspirin, atorvastatin, Benicar, Plavix, Cymbalta, Keppra, Lopressor, Norvasc and multivitamin PFSH Acute PFSH: Statuses (acute, chronic, etc) shown below reflect problem list status as previously entered and may not be historically accurate Medical History (Updated 04/18/19 @ 06:53 by Oralia Cruz MD) Anemia of chronic disease Atherosclerotic heart disease of [place] coronary artery without angina pectoris Lad stent Brain aneurysm COPD (chronic obstructive pulmonary disease) CVA (cerebral vascular accident) (~04/05/19) Essential hypertension, benign Hyperlipidemia Onychodystrophy Osteoporosis Peripheral artery disease Peripheral vascular disease Raynaud phenomenon Rheumatoid arthritis Seizure disorder SLE (systemic lupus erythematosus related syndrome) Tobacco abuse, in remission Vitamin D deficiency Surgical History History of carotid endarterectomy History of left above knee amputation History of orthopedic surgery left forearm, left patella History of right hip hemiarthroplasty Hx of cholecystectomy S/P coil embolization of cerebral aneurysm Family History Other CAD (coronary artery disease) Social History Smoking and tobacco status: former smoker Alcohol intake: never Caregiver/support person: Yes Lives independently: No Household members: spouse Housing: House Marital status: Vitals/I&O/Wt Last Vital Signs Temp 97.6 F 04/17/19 21:42 Pulse 78 04/18/19 03:00 Resp 17 04/18/19 03:00 BP 125/76 04/18/19 03:00 Pulse Ox 95 04/18/19 03:00 Weight last 48 hrs Weight 49.895 kg Physical Exam Const: COMMON NORMALS: oriented x3 GENERAL APPEARANCE: cooperative HENMT: COMMON NORMALS: normocephalic MOUTH: other (Dry mucous membranes) TEETH & GINGIVA: Yes fair dentition Eye: COMMON NORMALS: PERRL and EOMs intact bilaterally Neck/C-Spine: COMMON NORMALS: no meningeal signs Resp: COMMON NORMALS: normal respiratory effort, no use of accessory muscles and clear to auscultation bilaterally Cardio: COMMON NORMALS: regular rate, regular rhythm and no murmurs JUGULAR VENOUS DISTENTION: no JVD GI: COMMON NORMALS: normal to inspection, nondistended, normoactive bowel sounds, soft to palpation and non-tender : COMMON NORMALS: Yes no CVA tenderness BLADDER/KIDNEY EXAM: No catheter in place Extremity: NARRATIVE EXTREMITY EXAM: Left high AKA. Right lower extremity with thickened skin. Not currently cool to touch. Neuro: COMMON NORMALS: moves all extremities SPEECH: abnormal speech Details: slurred (A little bit easy to understand) Skin: NARRATIVE SKIN EXAM: Some ectasia at the tips of fingers on left hand and nail changes noted. Right foot with some desquamating skin and erythema. At the base of the heel there looks to be one little old puncture type wound. No areas of ecchymosis noted. GENERAL SKIN EXAM: dry skin Data : 04/17/19 21:10 04/17/19 21:10 Micro: Microbiology 04/17/19 22:10 Blood Culture - Preliminary Blood SPECIMEN COLLECTED 04/17/19 21:10 Blood Culture - Preliminary Blood SPECIMEN COLLECTED A&P Assessment and plan (1) Urinary tract infection: May be secondary to urinary retention issues that patient has intermittently plus or minus recent catheter during hospitalization last month. Hemorrhagic component. She was started on Plavix because of peripheral artery disease. She is also on aspirin. Not had similar symptoms in the past. She did have some associated diarrhea. Status: Acute Qualifiers: Hematuria presence: with hematuria Urinary tract infection type: acute cystitis Qualified Code(s): N30.01 - Acute cystitis with hematuria Code(s): N39.0 - Urinary tract infection, site not specified (2) Peripheral artery disease: With recent critical limb ischemia, currently being managed medically. Not able to be intervened upon percutaneously. Has seen Dr. Suero in the outpatient setting and current plans are to hold off on any invasive intervention until there is no other choice. Status: Chronic Code(s): I73.9 - Peripheral vascular disease, unspecified (3) SLE (systemic lupus erythematosus related syndrome): Status: Chronic Code(s): M32.9 - Systemic lupus erythematosus, unspecified (4) Atherosclerotic heart disease of [place] coronary artery without angina pectoris: Status: Chronic Qualifiers: [place] vs. transplanted heart: [place] heart Qualified Code(s): I25.10 - Atherosclerotic heart disease of [place] coronary artery without angina pectoris Code(s): I25.10 - Atherosclerotic heart disease of [place] coronary artery without angina pectoris (5) COPD (chronic obstructive pulmonary disease): Status: Chronic Qualifiers: COPD type: unspecified COPD Qualified Code(s): J44.9 - Chronic obstructive pulmonary disease, unspecified Code(s): J44.9 - Chronic obstructive pulmonary disease, unspecified (6) Elevated TSH: Status: Acute Code(s): R79.89 - Other specified abnormal findings of blood chemistry Additional A&P Information Work inpatient admission Continue Rocephin started in the emergency room Will need to follow-up culture Repeat lactic acid Continue home medications Some IV fluids We will continue aspirin and Plavix for now but hold further anticoagulation given the hematuria Check free T4 and Free T3 Monitor for any acute changes No VTE prophylaxis currently due to PAD, AKA, current hematuria Supportive care otherwise Full Code Plans discussed with patient and she was given an opportunity to answer questions Attestations Medical Necessity Statement*: Anticipate stay greater than 2 midnights in pt with multiple medical issues and new uti Coding Level of Care Code Acute Human Capital Manager for Chg Fwd Exam Problem Focused Diagnoses Urinary tract infection N30.01 Hematuria presence: with hematuria Urinary tract infection type: acute cystitis Peripheral artery disease I73.9 SLE (systemic lupus erythematosus related syndrome) M32.9 Atherosclerotic heart disease of [place] coronary artery without angina pectoris I25.10 [place] vs. transplanted heart: [place] heart COPD (chronic obstructive pulmonary disease) J44.9 COPD type: unspecified COPD Elevated TSH R79.89
[2019-04-18] MEDS: sodium chloride 0.9% 1,000 ML 75 ML IV (09:19)
[2019-04-18] MEDS: levETIRAcetam 500 mg Tablet PO ×2 (09:20→18:25)
[2019-04-18] MEDS: clopidogrel 75 mg Tablet PO (09:20)
[2019-04-18] MEDS: aspirin 81 mg EC Tablet PO (09:20)
[2019-04-18 09:33] LABS: Free T4 Free Thyroxine 1.68 ng/dL (0.82-1.77); T3 Free 3.1 PG/ML (2.0-4.4)
--- NOTE | 2019-04-18 15:19 | PM.PN ---
Subjective Subjective: Interval history: History and physical was reviewed. Patient denies any complaints. reports that last night she had a quite a bit of blood, after going to the toilet. He was not sure where this was coming from so brought her into the emergency department. Here the blood appear to be coming from the urethra. Medications: Reviewed: Yes Vitals/I&O/Wt Last Vital Signs Temp 97.3 F L 04/18/19 15:11 Pulse 92 04/18/19 15:11 Resp 16 04/18/19 15:11 BP 100/63 04/18/19 15:11 Pulse Ox 98 04/18/19 15:11 04/18/19 04/18/19 04/18/19 06:59 14:59 22:59 Intake Total 1050 / 1050 Balance 1050 / 1050 Weight last 48 hrs Weight 49.895 kg Physical Exam Narrative: EXAM NARRATIVE: General exam no apparent distress Cardiovascular regular rate and rhythm with a 2/6 systolic murmur Lungs clear Abdomen is soft, positive bowel sounds Extremity no obvious edema. 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 Urinary Catheter Management^: Carey: Cath Placed During This Visit: yes Urethral Indwelling: Yes Reason for Continuing Indwelling Catheter: Other (Placed for gross hematuria, urinary retention.) Urinary Catheter Date of Insertion: 04/18/19 Urinary Catheter Time of Insertion: 15:00 Data : 04/17/19 21:10 04/17/19 21:10 Micro: Microbiology 04/17/19 21:56 C.difficile Toxin B Gene (PCR) - Final Stool 04/17/19 22:10 Blood Culture - Preliminary Blood SPECIMEN COLLECTED 04/17/19 21:10 Blood Culture - Preliminary Blood SPECIMEN COLLECTED A&P Assessment and plan (1) Urinary tract infection: Concerned she may have had some urinary to retention for some time. She is certainly been incontinent according to patient and . I have placed a Carey catheter, when she arrived on the floor secondary to bladder scan demonstrating greater than 300 cc. Gross blood is noted in the catheter. I have asked the nurse to go ahead and do a lavage. I suspect she may need continuous bladder irrigation. I will involve urology. Plavix and aspirin must be discontinued currently secondary to significant blood loss noted. She has not had any recent stenting procedures. Rocephin for UTI Urine culture Continue fluids Status: Acute Qualifiers: Hematuria presence: with hematuria Urinary tract infection type: acute cystitis Qualified Code(s): N30.01 - Acute cystitis with hematuria Code(s): N39.0 - Urinary tract infection, site not specified (2) Peripheral artery disease: She has critical limb ischemia but no intervention has been recommended at this point. At this juncture because of bleeding Plavix and aspirin was stopped. These will need to be re-added as tolerated when bleeding is improved Status: Chronic Code(s): I73.9 - Peripheral vascular disease, unspecified (3) SLE (systemic lupus erythematosus related syndrome): Status: Chronic Code(s): M32.9 - Systemic lupus erythematosus, unspecified (4) Atherosclerotic heart disease of [place] coronary artery without angina pectoris: Status: Chronic Qualifiers: [place] vs. transplanted heart: [place] heart Qualified Code(s): I25.10 - Atherosclerotic heart disease of [place] coronary artery without angina pectoris Code(s): I25.10 - Atherosclerotic heart disease of [place] coronary artery without angina pectoris (5) COPD (chronic obstructive pulmonary disease): No evidence of exacerbation Status: Chronic Qualifiers: COPD type: unspecified COPD Qualified Code(s): J44.9 - Chronic obstructive pulmonary disease, unspecified Code(s): J44.9 - Chronic obstructive pulmonary disease, unspecified (6) Elevated TSH: T4 and T3 are normal. Status: Acute Code(s): R79.89 - Other specified abnormal findings of blood chemistry Additional A&P Information No VTE prophylaxis currently due to PAD, AKA, current hematuria Full code Attestations Medical Necessity Statement*: Needs continued hospitalization for gross hematuria, UTI requiring IV antibiotics Coding Level of Care Code Acute Ranch Manager for g Fwd Diagnoses Urinary tract infection N30.01 Hematuria presence: with hematuria Urinary tract infection type: acute cystitis Peripheral artery disease I73.9 SLE (systemic lupus erythematosus related syndrome) M32.9 Atherosclerotic heart disease of [place] coronary artery without angina pectoris I25.10 [place] vs. transplanted heart: [place] heart COPD (chronic obstructive pulmonary disease) J44.9 COPD type: unspecified COPD Elevated TSH R79.89
--- NOTE | 2019-04-18 15:39 | P.CONIM_ITS ---
Providers/Reason For Consult Consulting Physican/Specialty*: Urology/[place] Reason for Consult*: Gross hematuria Attending Physician: Michael Wray MD Primary Care Provider: Jakob Nash MD History of Present Illness History of Present Illness Stefany Sandoval is a 68 year old female admitted to the hospital for further evaluation of gross hematuria and UTI. CT scan demonstrated a small stone in her left upper pole kidney but no other gross abnormality other than hyperdense material in the posterior aspect of her bladder consistent with acute hemorrhage. Urinalysis showed too numerous to count RBCs and 50+ white cells. Culture is pending. Patient is on chronic aspirin and Plavix. Those have been stopped but she did receive doses today. Her hemoglobin is stable based on fairly recent CBCs. I was consulted for further evaluation and treatment of gross hematuria. We will plan on changing catheter to a three-way 22 [place] catheter for manual irrigation first followed by normal saline continuous bladder irrigation. Consider bedside flexible cystoscopy pending results of above. Reviewed with Dr. Wray. Review of Systems Const: Reports: chills; Denies: fever ENMT: Denies: painful swallowing or mouth pain Resp: Reports: shortness of breath GI: Reports: diarrhea : Reports: other (See HPI) Jad/Lymph: Reports: other (Hematuria); Denies: easy bruising Meds/Allergies Home Medications and Allergies Home Medications Medication Instructions Recorded Confirmed Type Women's Multivitamin 1 tab PO DAILY 04/05/19 04/18/19 History amlodipine [Norvasc] 10 mg PO BEDTIME 04/05/19 04/18/19 History aspirin [Aspirin Low Dose] 81 mg PO DAILY 04/05/19 04/18/19 History docusate sodium [DOK] 100 mg PO BID 04/05/19 04/18/19 History duloxetine [Cymbalta] 20 mg PO BEDTIME 04/05/19 04/18/19 History levetiracetam [Keppra] 500 mg PO BID 04/05/19 04/18/19 History metoprolol tartrate [Lopressor] 100 mg PO BID 04/05/19 04/18/19 History olmesartan [Benicar] 40 mg PO BEDTIME 04/05/19 04/18/19 History atorvastatin 20 mg PO DAILY 04/18/19 04/18/19 History Allergies Allergy/AdvReac Type Severity Reaction Status Date / Time Sulfa (Sulfonamide Allergy Unknown Unknown Verified 03/13/19 14:07 Antibiotics) Current Medications Current Medications Generic Name Dose Route Start Last Admin Trade Name Alek PRN Reason Stop Dose Admin Sodium Chloride 1,000 mls @ 75 mls/hr 04/18/19 07:11 04/18/19 09:19 Sodium Chloride 0.9% IV 04/18/19 20:30 75 mls/hr .[id number] STEWART Administration Levetiracetam 500 mg 04/18/19 09:00 04/18/19 09:20 Keppra PO 500 mg BID STEWART Administration Non-Formulary Medication 1 tab 04/18/19 09:00 04/18/19 09:30 [id number] Carb-Vit K [Women's Multivitamin] PO Not Given DAILY STEWART PFSH Acute PFSH: Statuses (acute, chronic, etc) shown below reflect problem list status as previously entered and may not be historically accurate Medical History (Updated 04/20/19 @ 07:24 by Logan Hagan MD) Anemia of chronic disease Atherosclerotic heart disease of [place] coronary artery without angina pectoris Past history of LAD stent greater than 1 year ago Brain aneurysm COPD (chronic obstructive pulmonary disease) CVA (cerebral vascular accident) (~04/05/19) Essential hypertension, benign Gross hematuria Hyperlipidemia Onychodystrophy Osteoporosis Peripheral artery disease Peripheral vascular disease Raynaud phenomenon Rheumatoid arthritis Seizure disorder SLE (systemic lupus erythematosus related syndrome) Tobacco abuse, in remission Vitamin D deficiency Surgical History History of carotid endarterectomy History of left above knee amputation History of orthopedic surgery left forearm, left patella History of right hip hemiarthroplasty Hx of cholecystectomy S/P coil embolization of cerebral aneurysm Family History Other CAD (coronary artery disease) Social History Smoking and tobacco status: former smoker Alcohol intake: never Caregiver/support person: Yes Lives independently: No Household members: spouse Housing: House Marital status: Vitals/I&O/Wt Last Vital Signs Temp 97.3 F L 02/12/20 15:11 Pulse 92 04/18/19 15:11 Resp 16 04/18/19 15:11 BP 100/63 04/18/19 15:11 Pulse Ox 98 04/18/19 15:11 04/18/19 04/18/19 04/18/19 06:59 14:59 22:59 Intake Total 1050 / 1050 Balance 1050 / 1050 Weight last 48 hrs Weight 110 lb Physical Exam Const: COMMON NORMALS: no apparent distress ORIENTATION/CONSCIOUSNESS: not confused HENMT: COMMON NORMALS: normocephalic and head/scalp atraumatic HEAD & SCALP: normocephalic and atraumatic TEETH & GINGIVA: Yes dentures Neck/C-Spine: COMMON NORMALS: supple Resp: COMMON NORMALS: normal respiratory effort EFFORT & INSPECTION: No tachypneic and No respiratory distress : COMMON NORMALS: Yes no CVA tenderness BLADDER/KIDNEY EXAM: Yes bladder normal to palpation (No distention) and Yes no CVA tenderness BIMANUAL EXAM - VAGINA & UTERUS: Yes bladder normal to palpation (No distention) Back/Pelvis: COMMON NORMALS: no CVA tenderness Extremity: NARRATIVE EXTREMITY EXAM: Rheumatoid deformities Psych: COMMON NORMALS: negative for speech normal ATTITUDE: Yes calm and Yes engaged SPEECH: No normal speech and Yes other (Post CVA) Urinary Catheter Management^: Carey: Cath Placed During This Visit: yes Urethral Indwelling: Yes Reason for Continuing Indwelling Catheter: Other (Placed for gross hematuria, urinary retention.) Urinary Catheter Date of Insertion: 04/18/19 Urinary Catheter Time of Insertion: 15:00 Data Micro: Micro: Microbiology 04/17/19 21:56 C.difficile Toxin B Gene (PCR) - Fin al Stool 04/17/19 22:10 Blood Culture - Pr eliminary Blood SPECIMEN [facility] 04/17/19 21:10 Blood Culture - Pr eliminary Blood SPECIMEN [facility] A&P Assessment and plan (1) Gross hematuria: Etiology unclear at this point Does have a urinary tract infection has been on antiplatelet medications. We will change the catheter out, manually irrigate, start CBI. Consider bedside flexible cystoscopy if persistent hematuria. Status: Resolved Code(s): R31.0 - Gross hematuria (2) Urinary tract infection: Present on admission. Preceded by 3 to 4 weeks of irritative voiding symptoms before gross hematuria onset. Status: Resolved Qualifiers: Hematuria presence: with hematuria Urinary tract infection type: acute cystitis Qualified Code(s): N30.01 - Acute cystitis with hematuria Code(s): N39.0 - Urinary tract infection, site not specified (3) Incomplete bladder emptying: Status: Acute Code(s): R33.9 - Retention of urine, unspecified Consult Attestations Medical Necessity Statement: Required continuous bladder irrigation Time Spent in Patient Care: Greater than 35 minutes (>than 50% of time spent in counselling and/or direct pt care on unit) . Coding Level of Care Code Acute Physician Relations Manager for Chg Fwd Exam Problem Focused Diagnoses Gross hematuria R31.0 Urinary tract infection N30.01 Hematuria presence: with hematuria Urinary tract infection type: acute cystitis Incomplete bladder emptying R33.9
--- NOTE | 2019-04-18 19:17 | PC.NURSE ---
CBI 22G 3-WAY CRUZ CATHETER PLACED BY THIS NURSE. PATIENT MANUALLY IRRIGATED TWICE AND RECEIVED MINIMAL CLOTS. CBI RUNNING WIDE OPEN AND IS BRIGHT RED. CLOTS ARE NOW FLOWING THROUGH. PATIENT TOLERATED WELL. WILL MANUALLY IRRIGATE NEEDED.
[2019-04-18] MEDS: losartan 50 mg Tablet 100 MG PO (20:56)
[2019-04-18] MEDS: metoprolol tartrate 50 mg Tablet 100 MG PO (20:56)
[2019-04-18] MEDS: atorvastatin 40 mg Tablet 80 MG PO (20:56)
[2019-04-18] MEDS: duloxetine 20 mg Capsule PO (20:57)
[2019-04-18] MEDS: amlodipine 10 mg Tablet PO (20:57)
--- NOTE | 2019-04-18 21:41 | PC.NURSE ---
Primary nurse notified of elevated temperature.
--- NOTE | 2019-04-18 22:20 | PC.NURSE ---
at first glance of patient she appeared in pain and stated she was experiencing pain and pressure in lower abd area, it was also noted leakage around catheter from the urethra - bladder scanned patient and there was 700ml+ fluid in bladder - proceeded to aggressively irrigate and evacuated copious massive clots. CBI turned wide open to result in light pink urine.
[2019-04-19] VITALS (10 sets, daily range): BP systolic 94–136; BP diastolic 57–70; PULSE 62–88; RESP 16–20; TEMP 36.6–36.9; O2SAT 91–98
[2019-04-19 02:08] LABS: Basophils # 0.1 10^3/uL (0.0-0.1); Basophils % 0.6 %; Eosinophils # 0.1 10^3/uL (0.0-0.8); Eosinophils % 0.7 %; Hematocrit 29.6 % (37.0-47.0); Hemoglobin 9.8 g/dL (11.5-15.3); Lymphocytes # 1.4 10^3/uL (0.8-4.8); Lymphocytes % 10.9 %; Mean Corpuscular HGB Conc 33.1 g/dL (30.0-36.0); Mean Corpuscular Hemoglobin 31.8 pg (28.0-34.0); Mean Corpuscular Volume 96.1 fL (81-99); Monocytes # 1.3 10^3/uL (0.2-0.9); Neutrophils % 77.3 %; Nucleated Red Blood Cells % 0 %; Platelet Count 274 10^3/cmm (130-400); Red Blood Count 3.08 10^6/uL (4.1-5.3); Red Cell Distribution Width 13.2 % (12.1-15.1)
[2019-04-19 02:25] LABS: Anion Gap 16.1 (5-19); Blood Urea Nitrogen 6 mg/dL (8-23); Calcium 9.1 mg/dL (8.5-10.5); Carbon Dioxide 21 mmol/L (22-29); Chloride 94 mmol/L (98-107); Glomerular Filtration Rate 222.6 mL/min (90-130); Glucose 100 mg/dL (65-115); Osmolality Calculated 262 mOsm/kg (285-295); Potassium 3.1 mmol/L (3.5-5.1); Sodium 128 mmol/L (136-145)
[2019-04-19] MEDS: cefTRIAXone 1,000 MG in sodium chloride 0.9% (plus) 50 ML 100 MG IV (03:10)
--- NOTE | 2019-04-19 05:57 | PC.NURSE ---
At the time patient CBI running at a quick drip, and running cloudy clear with the occasional clot and white tissue fragments. Only need for manual irrigation one time tonight. (see previous note) Pt has no complaints of pain/discomfort no distention, or leakage at urethra. Final values and mL calculations to follow in next note.
--- NOTE | 2019-04-19 07:11 | PC.NURSE ---
Pt CBI ran 7 bag at 3000ml a piece to equal [id number]. Total catheter bag drainage [id number].
--- NOTE | 2019-04-19 07:16 | P.PN_ITS ---
Subjective Subjective: Interval history: Urology follow-up note Three-way catheter placed last night. Manual irrigation conducted with large amount of clot return. Initially CBI was running quite red but overnight cleared appropriately. This morning the urine is clear. The patient denies any significant complaints this morning. No bladder pain fever chills etc. I have spoken with the nursing staff to continue CBI at a slower tapered rate as tolerated. Manual irrigation as needed. I expect that if this maintains that we can turn the CBI off tomorrow and consider flexible cystoscopy at the bedside to confirm no neoplastic process. I expect that the bleeding is primarily from UTI but that needs to be clarified. Afternoon Addendum: Urine has remained clear with decreasing CBI. She reports that she had about 3 to 4 weeks of increasing lower urinary tract symptoms prior to onset of gross hematuria. It sounds as though these were likely to be UTI type symptoms. She reports only a couple UTIs in her life. Recommendations will be to leave the catheter in at discharge. Follow-up early next week for voiding trial and cystoscopy in my office. I expect that from a urologic perspective if her urine remains clear she will be good from my perspective for discharge with continuation of antibiotics at home. Vitals/I&O/Wt Last Vital Signs Temp 98.5 F 04/19/19 04:00 Pulse 72 04/19/19 04:00 Resp 18 04/19/19 04:00 BP 115/64 04/19/19 04:00 Pulse Ox 95 04/19/19 04:00 04/18/19 04/19/19 04/19/19 22:59 06:59 14:59 Intake Total 240 / 1290 Output Total 150 / 150 Balance -150 / 900 240 / 1140 Weight last 48 hrs Weight 110 lb Physical Exam Const: COMMON NORMALS: no apparent distress and oriented x3 GENERAL APPEARANCE: cooperative and comfortable Neck/C-Spine: OTHER: Good range of motion. Resp: COMMON NORMALS: normal respiratory effort EFFORT & INSPECTION: Yes able to speak in complete sentences, No tachypneic and No respiratory distress GI: COMMON NORMALS: soft to palpation PALPATION: Yes soft and No bladder palpation abnormal : BLADDER/KIDNEY EXAM: Yes catheter in place, No bladder abnormal to palpation and Yes other (Letter not distended. Nontender) Neuro: COMMON NORMALS: oriented x3 OTHER: Some what appears to be a chronic slurring of speech. Psych: COMMON NORMALS: mental status grossly normal and affect normal Urinary Catheter Management^: Carey: Cath Placed During This Visit: yes Urethral Indwelling: Yes Reason for Continuing Indwelling Catheter: Other Urinary Catheter Date of Insertion: 04/18/19 Urinary Catheter Time of Insertion: 15:00 Data : 04/19/19 02:00 04/19/19 02:00 Micro: Microbiology 04/17/19 22:10 Blood Culture - Preliminary Blood NEGATIVE TO DATE 04/17/19 21:10 Blood Culture - Preliminary Blood NEGATIVE TO DATE 04/17/19 21:56 C.difficile Toxin B Gene (PCR) - Final Stool Attestations Medical Necessity Statement*: Has had significant bleeding from her bladder requiring manual irrigation of clots and continuous bladder irrigation. She will need CBI for at least another 24 hours. 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
[2019-04-19] MEDS: levETIRAcetam 500 mg Tablet PO ×2 (09:09→17:51)
--- NOTE | 2019-04-19 12:36 | PM.PN ---
Subjective Subjective: Interval history: Stefany reports she is feeling better. No specific complaints today. One elevated temperature was noted during the night. Medications: Reviewed: Yes Vitals/I&O/Wt Last Vital Signs Temp 98.1 F 04/19/19 11:16 Pulse 62 04/19/19 11:16 Resp 16 04/19/19 11:16 BP 102/60 04/19/19 11:16 Pulse Ox 95 04/19/19 11:16 04/18/19 04/19/19 04/19/19 22:59 06:59 14:59 Intake Total 240 / 1290 770 / 770 Output Total 150 / 150 780 / 780 Balance -150 / 900 240 / 1140 -10 / -10 Weight last 48 hrs Weight 49.895 kg Physical Exam Narrative: EXAM NARRATIVE: General exam no apparent distress Cardiovascular regular rate and rhythm with a 2/6 systolic murmur Lungs clear Abdomen is soft, positive bowel sounds Extremity no obvious edema. 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 Urinary Catheter Management^: Carey: Cath Placed During This Visit: yes Urethral Indwelling: Yes Reason for Continuing Indwelling Catheter: Other Urinary Catheter Date of Insertion: 04/18/19 Urinary Catheter Time of Insertion: 15:00 Data : 04/19/19 02:00 04/19/19 02:00 Micro: Microbiology 04/17/19 22:10 Blood Culture - Preliminary Blood NEGATIVE TO DATE 04/17/19 21:10 Blood Culture - Preliminary Blood NEGATIVE TO DATE 04/17/19 21:56 C.difficile Toxin B Gene (PCR) - Final Stool A&P Assessment and plan (1) Urinary tract infection: Concerned she may have had some urinary to retention for some time. She is certainly been incontinent according to patient and . I have placed a Carey catheter, when she arrived on the floor secondary to bladder scan demonstrating greater than 300 cc. Gross blood is noted in the catheter. Her Plavix and aspirin have been held. Continuous bladder irrigation arranged by urology who consulted on the patient. Continue Rocephin Await urine culture Secondary to development of worsening hyponatremia hold any further fluids Status: Acute Qualifiers: Hematuria presence: with hematuria Urinary tract infection type: acute cystitis Qualified Code(s): N30.01 - Acute cystitis with hematuria Code(s): N39.0 - Urinary tract infection, site not specified (2) Peripheral artery disease: She has critical limb ischemia but no intervention has been recommended at this point. At this juncture because of bleeding Plavix and aspirin was stopped. These will need to be re-added as tolerated when bleeding is improved Status: Chronic Code(s): I73.9 - Peripheral vascular disease, unspecified (3) SLE (systemic lupus erythematosus related syndrome): Status: Chronic Code(s): M32.9 - Systemic lupus erythematosus, unspecified (4) Atherosclerotic heart disease of [place] coronary artery without angina pectoris: Status: Chronic Qualifiers: [place] vs. transplanted heart: [place] heart Qualified Code(s): I25.10 - Atherosclerotic heart disease of [place] coronary artery without angina pectoris Code(s): I25.10 - Atherosclerotic heart disease of [place] coronary artery without angina pectoris (5) COPD (chronic obstructive pulmonary disease): No evidence of exacerbation Status: Chronic Qualifiers: COPD type: unspecified COPD Qualified Code(s): J44.9 - Chronic obstructive pulmonary disease, unspecified Code(s): J44.9 - Chronic obstructive pulmonary disease, unspecified (6) Elevated TSH: T4 and T3 are normal. Status: Acute Code(s): R79.89 - Other specified abnormal findings of blood chemistry Additional A&P Information Hyponatremia. Will hold any further fluids Hypokalemia, will supplement No VTE prophylaxis currently due to PAD, AKA, current hematuria Full code Attestations Medical Necessity Statement*: Needs continued hospitalization for IV antibiotics secondary to UTI. 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 transplanted heart: [place] heart COPD (chronic obstructive pulmonary disease) J44.9 COPD type: unspecified COPD Elevated TSH R79.89
--- NOTE | 2019-04-19 12:45 | PC.CHAP ---
Pastoral Care Encounter/Spiritual Assessment Type of Contact [] Declined manager trade visit [] Patient/Family/Request visit [] Outpatient visit [] Follow-up visit [] Physician referral [] Code/Alert [x] Routine visit [] Staff referral [] Actively dying [] Patient sleeping [] Family support [] [] Out of room [] Palliative care [] [] Receiving care in room [] Pre-surgical visit [] Trauma [] Long length of stay [] ICU visit [] Other: Relational/Emotional Strength [x] Patient feels connected with others/family/visitors/staff [] Distress [] Loneliness/isolation [] Abandonment Spirituality of Patient [x] Person of Isha [x] Attends Zoroastrian of their Isha [x] Believes in Prayer [x] Reads Bible or Christian materials [] There are Spiritual issues to be addressed Law Researcher Interventions [x] Prayer [x] Active listening [x] Non-anxious presence [x] Spiritual/emotional support [] Crisis/trauma care [x] Spiritual counseling [] Bereavement support [] Provided bereavement packet [] Provided Bible/devotional materials [] Provided toy/stuffed animal, coloring book to patient or family member [] Provided Communion [] Anointing/[place] [] Salvation [] Completed spiritual assessment [] Other: Impact on Illness or Injury [] Angry [x] Fearful [] Anxious [] Often cries [] Exhaustion [] Unable to work [] Unable to attend jehovah's witness [] Unable to walk/stand [] Unable to read [] Unable to drive [] Unable to eat/drink [] Unable to sleep [] Unable to be with family [] Patient intubated [] Other: Summary Patient is very concerned and anxious about making the decision to have her leg amputated or not. Time spent with patient 15 mnutes
[2019-04-19] MEDS: cefTRIAXone 1,000 MG in sodium chloride 0.9% (plus) 50 ML 50 MG IV (14:02)
[2019-04-19] MEDS: HYDROcodone-acetaminophen 5-325 mg Tablet 1 TAB PO (16:09)
--- NOTE | 2019-04-19 17:58 | PC.NURSE ---
CBI Patient had a total of 3600ml of CBI, total urine output of 950 with no retention or bladder distention. Urine is pale yellow with no clots. CBI running at a very slow rate at this time.
[2019-04-19] MEDS: duloxetine 20 mg Capsule PO (20:16)
[2019-04-19] MEDS: atorvastatin 40 mg Tablet 80 MG PO (20:17)
[2019-04-19] MEDS: acetaminophen 325 mg Tablet 650 MG PO (20:17)
--- NOTE | 2019-04-19 20:57 | PM.EVENT ---
Event Note Event Note: Called with BP low normal. Holding amlodipine and losartan this evening and decreased metoprolol to 50mg from 100mg.
[2019-04-19] MEDS: metoprolol tartrate 50 mg Tablet PO (21:44)
[2019-04-20] MEDS: cefTRIAXone 1,000 MG in sodium chloride 0.9% (plus) 50 ML 50 MG IV (03:00)
[2019-04-20] MEDS: HYDROcodone-acetaminophen 5-325 mg Tablet 1 TAB PO ×2 (03:14→08:40)
[2019-04-20 03:57] VITALS: BP 111/61; PULSE 52; RESP 18; TEMP 36.6; O2SAT 96
[2019-04-20 05:47] LABS: Basophils # 0.1 10^3/uL (0.0-0.1); Eosinophils # 0.3 10^3/uL (0.0-0.8); Eosinophils % 3.6 %; Hematocrit 29.6 % (37.0-47.0); Hemoglobin 9.8 g/dL (11.5-15.3); Lymphocytes # 0.9 10^3/uL (0.8-4.8); Lymphocytes % 11.2 %; Mean Corpuscular HGB Conc 33.1 g/dL (30.0-36.0); Mean Corpuscular Hemoglobin 32.3 pg (28.0-34.0); Mean Corpuscular Volume 97.7 fL (81-99); Mean Platelet Volume 9.9 fL (7.4-10.4); Neutrophils # 5.9 10^3/uL (1.8-7.7); Neutrophils % 71.6 %; Nucleated Red Blood Cells % 0 %; Platelet Count 264 10^3/cmm (130-400); Red Blood Count 3.03 10^6/uL (4.1-5.3); Red Cell Distribution Width 13.2 % (12.1-15.1); White Blood Count 8.2 10^3/uL (4.0-10.0)
--- NOTE | 2019-04-20 05:50 | PC.NURSE ---
CBI Pt's urine has been clear most of the night. Pt had one episode of cramping and was noted to have a build-up of sediment at top of catheter tubing. Tubing adjusted and CBI sped up momentarily with immediate clearing and resolution of pain. Pt had one very small mucous/sediment strand out in catheter. CBI has been running slow all night with no complaints of pain, pt has required no irrigation.
[2019-04-20 06:37] LABS: Anion Gap 16.4 (5-19); Blood Urea Nitrogen 5 mg/dL (8-23); Calcium 8.9 mg/dL (8.5-10.5); Carbon Dioxide 20 mmol/L (22-29); Chloride 97 mmol/L (98-107); Glomerular Filtration Rate 222.6 mL/min (90-130); Glucose 100 mg/dL (65-115); Osmolality Calculated 266 mOsm/kg (285-295); Potassium 3.4 mmol/L (3.5-5.1); Sodium 130 mmol/L (136-145)
--- NOTE | 2019-04-20 07:15 | P.PN_ITS ---
Subjective Subjective: Interval history: From a urologic perspective she continues to do well. No significant catheter issues. Reviewed nursing notes. Urine has remained clear with minimal continuous bladder irrigation. No evidence of ongoing bleeding. In summary I think her gross hematuria was related to an ongoing infection that was symptomatic for probably 3 to 4 weeks prior to presentation. She has been treated with antibiotics which need to be continued on outpatient basis for least a week. Because of the degree of bleeding I have recommended maintaining the Carey catheter at discharge with plan for removal at voiding trial and cystoscopy in my office early next week. I reviewed all the above with the patient in detail. She expresses good understanding. Vitals/I&O/Wt Last Vital Signs Temp 97.8 F 04/20/19 03:57 Pulse 52 L 04/20/19 03:57 Resp 18 04/20/19 03:57 BP 111/61 04/20/19 03:57 Pulse Ox 96 04/20/19 03:57 04/19/19 04/20/19 04/20/19 22:59 06:59 14:59 Intake Total 530 / 1780 2690 / 4470 Output Total 600 / 1730 3000 / 4730 Balance -70 / 50 -310 / -260 Physical Exam 2 Const: COMMON NORMALS: no apparent distress, alert and well nourished GENERAL APPEARANCE: well kempt and well developed ORIENTATION/CONSCIOUSNESS: not confused HENMT: COMMON NORMALS: normocephalic and head/scalp atraumatic HEAD & SCALP: normocephalic and atraumatic Resp: COMMON NORMALS: normal respiratory effort EFFORT & INSPECTION: No labored and No actively coughing Neuro: COMMON NORMALS: no focal motor deficits SENSORIUM/ORIENTATION: Yes alert SPEECH: speech abnormal and other (Post CVA slurred speech. No change acutely) Psych: COMMON NORMALS: mental status grossly normal APPEARANCE: Yes grossly normal and Yes well kempt ATTITUDE: Yes calm and Yes engaged Urinary Catheter Management^: Carey: Cath Placed During This Visit: yes Urethral Indwelling: Yes Reason for Continuing Indwelling Catheter: Other Urinary Catheter Date of Insertion: 04/18/19 Urinary Catheter Time of Insertion: 15:00 Data : 04/20/19 05:22 04/20/19 05:22 Micro: Microbiology 04/18/19 00:14 Urine Culture - Preliminary Urine,Clean Catch Gram Negative Rods A&P Assessment and plan (1) Acute cystitis with hematuria: 3 to 4 weeks of increasing lower urinary tract symptoms including urgency frequency feeling of incomplete emptying. Developed gross hematuria requiring aggressive irrigation manually and with continued bladder irrigation while antibiotic therapy initiated. Good response from a gross hematuria perspective. Status: Acute Code(s): N30.01 - Acute cystitis with hematuria (2) Incomplete bladder emptying: Plan on maintaining catheter early next week to allow further healing and improve chances of recovery of spontaneous emptying. 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
[2019-04-20 07:45] VITALS: PULSE 87; O2SAT 95
[2019-04-20 07:47] VITALS: BP 126/74; PULSE 60; RESP 16; TEMP 36.8; O2SAT 95
[2019-04-20] MEDS: levETIRAcetam 500 mg Tablet PO (08:40)
[2019-04-20] MEDS: clopidogrel 75 mg Tablet PO (09:57)
[2019-04-20 12:00] VITALS: BP 126/74; PULSE 60; RESP 16; TEMP 36.8; O2SAT 95
--- NOTE | 2019-04-20 13:59 | PM.PN ---
Subjective Subjective: Interval history: Stefany reports she is doing okay. No complaints. Medications: Reviewed: Yes Vitals/I&O/Wt Last Vital Signs Temp 98.2 F 04/20/19 07:47 Pulse 60 04/20/19 07:47 Resp 16 04/20/19 07:47 BP 126/74 04/20/19 07:47 Pulse Ox 95 04/20/19 07:47 04/19/19 04/20/19 04/20/19 22:59 06:59 14:59 Intake Total 530 / 1780 2690 / 4470 360 / 360 Output Total 600 / 1730 3000 / 4730 Balance -70 / 50 -310 / -260 360 / 360 Physical Exam Narrative: EXAM NARRATIVE: General exam no apparent distress Cardiovascular regular rate and rhythm with a 2/6 systolic murmur Lungs clear Abdomen is soft, positive bowel sounds Extremity no obvious edema. 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 Urinary Catheter Management^: Carey: Cath Placed During This Visit: yes Urethral Indwelling: Yes Reason for Continuing Indwelling Catheter: Other Urinary Catheter Date of Insertion: 04/18/19 Urinary Catheter Time of Insertion: 15:00 Data : 04/20/19 05:22 04/20/19 05:22 Micro: Microbiology 04/18/19 00:14 Urine Culture - Final Urine,Clean Catch Escherichia coli esbl A&P Assessment and plan (1) Urinary tract infection: Concerned she may have had some urinary to retention for some time. She is certainly been incontinent according to patient and . I have placed a Carey catheter, when she arrived on the floor secondary to bladder scan demonstrating greater than 300 cc. Gross blood is noted in the catheter. Urine has cleared. Continuous bladder irrigation was used which is since stopped. Urine culture has now grown ESBL. Rocephin will be discontinued. Primaxin initiated. Will need PICC line Plan on discharging on ertapenem daily for 10 days when able Status: Resolved Qualifiers: Hematuria presence: with hematuria Urinary tract infection type: acute cystitis Qualified Code(s): N30.01 - Acute cystitis with hematuria Code(s): N39.0 - Urinary tract infection, site not specified (2) Peripheral artery disease: She has critical limb ischemia but no intervention has been recommended at this point. At this juncture because of bleeding Plavix and aspirin was stopped. These will need to be re-added as tolerated when bleeding is improved. No evidence of bleeding currently. Restart Plavix. Status: Chronic Code(s): I73.9 - Peripheral vascular disease, unspecified (3) SLE (systemic lupus erythematosus related syndrome): Status: Chronic Code(s): M32.9 - Systemic lupus erythematosus, unspecified (4) Atherosclerotic heart disease of [place] coronary artery without angina pectoris: Status: Chronic Qualifiers: [place] vs. transplanted heart: [place] heart Qualified Code(s): I25.10 - Atherosclerotic heart disease of [place] coronary artery without angina pectoris Code(s): I25.10 - Atherosclerotic heart disease of [place] coronary artery without angina pectoris (5) COPD (chronic obstructive pulmonary disease): No evidence of exacerbation Status: Chronic Qualifiers: COPD type: unspecified COPD Qualified Code(s): J44.9 - Chronic obstructive pulmonary disease, unspecified Code(s): J44.9 - Chronic obstructive pulmonary disease, unspecified (6) Elevated TSH: T4 and T3 are normal. Status: Acute Code(s): R79.89 - Other specified abnormal findings of blood chemistry Additional A&P Information Hyponatremia. 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 transplanted heart: [place] heart COPD (chronic obstructive pulmonary disease) J44.9 COPD type: unspecified COPD Elevated TSH R79.89
--- NOTE | 2019-04-20 14:23 | PM.DCS ---
Discharge Providers Date of Admission: 04/18/19 05:43 Date of Discharge: April 20, 2019 Attending Provider at Admission: Oralia Cruz MD Attending Provider at Discharge: Michael Wray MD Primary Care Provider: Jakob Nash MD Diagnoses at Discharge Discharge Diagnosis (1) Urinary tract infection: Status: Resolved Problem details: ESBL. Will finish 10 days total of ertapenem, 9 days outpatient Qualifiers: Hematuria presence: with hematuria Urinary tract infection type: acute cystitis Qualified Code(s): N30.01 - Acute cystitis with hematuria (2) Peripheral artery disease: Status: Chronic Problem details: Resume Plavix, hold aspirin secondary to hematuria. Hopefully will re-add aspirin in 1 week (3) SLE (systemic lupus erythematosus related syndrome): Status: Chronic (4) Atherosclerotic heart disease of [place] coronary artery without angina pectoris: Status: Chronic Problem details: Past history of LAD stent greater than 1 year ago Qualifiers: [place] vs. transplanted heart: [place] heart Qualified Code(s): I25.10 - Atherosclerotic heart disease of [place] coronary artery without angina pectoris (5) COPD (chronic obstructive pulmonary disease): Status: Chronic Qualifiers: COPD type: unspecified COPD Qualified Code(s): J44.9 - Chronic obstructive pulmonary disease, unspecified (6) Elevated TSH: Status: Acute Reason for Visit Reason for Visit: Reason For Visit: BLEEDING VAG Hospital Course Hospital Course: Stefany presented with gross hematuria. There was concern of UTI. Rocephin was started. Cultures obtained. Urology consultation obtained secondary to gross hematuria and continuous bladder irrigation started. CT abdomen and pelvis did not demonstrate any obstruction. With continuous bladder irrigation, discontinuation of Plavix and aspirin hematuria went away. Plavix was ultimately re-added. Urine culture grew ESBL, so midline was placed and ertapenem started. She will complete 9 days at home for 10 days total treatment. Physical Exam Urinary Catheter Management^: Carey: Cath Placed During This Visit: yes Urethral Indwelling: Yes Reason for Continuing Indwelling Catheter: Other Urinary Catheter Date of Insertion: 04/18/19 Urinary Catheter Time of Insertion: 15:00 Discharge Data Data Completed and Pending: Completed Studies During Hospitalization Category Date Time Status CT abdomen pelvis wo con [id number] Urge nt Cat Scan 04/17/19 21:[address] head wo con* 7 0450 Urgent Cat Scan 04/17/19 21:55 Completed XR chest 1V chaim ble [id number] Urgent Exams 04/17/19 21:47 Completed Pending at discharge Category Date Time Status Blood Culture Sta t Lab 04/17/19 22:10 Results Labs from last 24 hours 04/20/19 04/20/19 05:22 05:22 WBC 8.2 RBC 3.03 L Hgb 9.8 L Hct 29.6 L MCV 97.7 MCH 32.3 MCHC 33.1 RDW 13.2 Plt Count 264 MPV 9.9 Neut % (Auto) 71.6 Lymph % (Auto) 11.2 [place] % (Auto) 12.0 Eos % (Auto) 3.6 Baso % (Auto) 1.0 Neut # (Auto) 5.9 Lymph # (Auto) 0.9 [place] # (Auto) 1.0 H Eos # (Auto) 0.3 Baso # (Auto) 0.1 Nucleated RBC % (a uto) 0 Nucleated RBCs # 0.0 Sodium 130 L Potassium 3.4 L Chloride 97 L Carbon Dioxide 20 L Anion Gap 16.4 BUN 5 L Creatinine 0.3 L GFR Calculation 222.6 H Glucose 100 Calculated Osmolal ity 266 L Calcium 8.9 Vitals: Last Vital Signs Temp 98.2 F 04/20/19 07:47 Pulse 60 04/20/19 07:47 Resp 16 04/20/19 07:47 BP 126/74 04/20/19 07:47 Pulse Ox 95 04/20/19 07:47 Discharge Plan Discharge Patient Disposition: Home Health Service Condition: Stable Prescriptions: New hydrocodone-acetaminophen 5-325 mg Tablet 1 tab PO Q4H PRN (Reason: Moderate Pain) Qty: 20 RF: 0 ertapenem 1 gram recon soln 1 gm IV DAILY 9 Days Qty: 9 RF: 0 Continued clopidogrel [Plavix] 75 mg tablet 75 mg PO DAILY Qty: 30 RF: 3 metoprolol tartrate [Lopressor] 100 mg tablet 100 mg PO BID RF: 0 levetiracetam [Keppra] 500 mg tablet 500 mg PO BID RF: 0 amlodipine [Norvasc] 10 mg tablet 10 mg PO BEDTIME RF: 0 docusate sodium [DOK] 100 mg capsule 100 mg PO BID RF: 0 olmesartan [Benicar] 40 mg tablet 40 mg PO BEDTIME RF: 0 duloxetine [Cymbalta] 20 mg capsule,delayed release(DR/EC) 20 mg PO BEDTIME RF: 0 Women's Multivitamin 18 mg iron-400 mcg-500 mg Tablet 1 tab PO DAILY RF: 0 acetaminophen 325 mg Tablet 650 mg PO Q6H PRN (Reason: Mild/Mod Pain Or Temp >/= 101) Qty: 0 RF: 0 atorvastatin 20 mg Tablet 20 mg PO DAILY RF: 0 Discontinued aspirin [Aspirin Low Dose] 81 mg Tablet,Delayed Release (Dr/Ec) 81 mg PO DAILY RF: 0 Discharge Orders: Discharge Order (Routine); Ordered 04/20/19 Ordered By: Michael Wray Referrals: Jakob Nash MD [Primary Care Provider] - 4-7 days Logan Hagan MD [Physician] - 4-7 days Discharge Diet: Cardiac Discharge Activity: Resume usual activity Activity Restrictions/Additional Instructions: 1. Maintain catheter and bladder until voiding trial in urology office early next week. 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 transplanted heart: [place] heart COPD (chronic obstructive pulmonary disease) J44.9 COPD type: unspecified COPD Elevated TSH R79.89
[2019-04-20] MEDS: ertapenem 1,000 MG in sodium chloride 0.9% (plus) 100 ML 200 MG IV (14:55)
[2019-04-20 15:06] VITALS: BP 126/74; PULSE 60; RESP 16; TEMP 36.8; O2SAT 95
--- NOTE | 2019-04-20 15:57 | PC.NURSE ---
CBI Patient had a total of 2600 ml of CBI, total urine output of 900 with no retention or bladder distention. Urine is pale yellow with no clots. CBI discontinued at this time for DC.
[2019-04-20 16:00] VITALS: BP 134/70; PULSE 68; RESP 18; TEMP 36.8; O2SAT 93
--- NOTE | 2019-04-20 16:09 | PC.CHAP ---
Pastoral Care Encounter/Spiritual Assessment Type of Contact [] Declined highway worker visit [] Patient/Family/Request visit [] Outpatient visit [] Follow-up visit [] Physician referral [] Code/Alert [x] Routine visit [] Staff referral [] Actively dying [] Patient sleeping [] Family support [] [] Out of room [] Palliative care [] [x] Receiving care in room [] Pre-surgical visit [] Trauma [] Long length of stay [] ICU visit [] Other: Relational/Emotional Strength [x] Patient feels connected with others/family/visitors/staff [] Distress [] Loneliness/isolation [] Abandonment Spirituality of Patient [x] Person of Isha [] Attends [facility]itan of their Isha [x] Believes in Prayer [] Reads Bible or Episcopalian materials [] There are Spiritual issues to be addressed [employer] Equipment [employer]r Interventions [x] Prayer [x] Active listening [x] Non-anxious presence [x] Spiritual/emotional support [] Crisis/trauma care [x] Spiritual counseling [] Bereavement support [] Provided bereavement packet [] Provided Bible/devotional materials [] Provided toy/stuffed animal, coloring book to patient or family member [] Provided Communion [] Anointing/[place] [] Salvation [x] Completed spiritual assessment [] Other: Impact on Illness or Injury [] Angry [] Fearful [] Anxious [] Often cries [] Exhaustion [] Unable to work [] Unable to attend yazidi [] Unable to walk/stand [] Unable to read [] Unable to drive [] Unable to eat/drink [] Unable to sleep [] Unable to be with family [] Patient intubated [] Other: Summary Patient getting ready to go home. Time spent with patient
--- NOTE | 2019-04-20 18:28 | PM.EVENT ---
Event Note Event Note: Patient called back to nursing floor with concern some blood has returned to the urine. I instructed her to tell them to stop her Plavix. If they are concerned with the amount return to the hospital. If they want to monitor if this is clearing at home ok to do and have home health nurse assess tomorrow as long as no obstruction to urine flow. If any concern at any point, return.
== END 2019-04-20 16:40 | disposition home health service (06) | DRG 690 ==
LOC: ER 04-18 02:28 → MEDSURG 04-18 10:53
PROVIDERS: Admitting Provider Hospitalist; Emergency Provider Emergency Medicine; Family Provider Internal Medicine; PCP Internal Medicine; Visit Provider Internal Medicine
DX: N30.01 Acute cystitis with hematuria (principal); E87.1 Hypo-osmolality and hyponatremia; I73.9 Peripheral vascular disease, unspecified; I25.10 Atherosclerotic heart disease of native coronary artery without angina pectoris; J44.9 Chronic obstructive pulmonary disease, unspecified; M32.9 Systemic lupus erythematosus, unspecified; Z86.73 Personal history of transient ischemic attack (TIA), and cerebral infarction without residual deficits; E78.5 Hyperlipidemia, unspecified; G40.909 Epilepsy, unspecified, not intractable, without status epilepticus; M06.9 Rheumatoid arthritis, unspecified; D63.8 Anemia in other chronic diseases classified elsewhere; Z88.2 Allergy status to sulfonamides; Z79.82 Long term (current) use of aspirin; Z79.899 Other long term (current) drug therapy; R33.9 Retention of urine, unspecified; Z79.890 Hormone replacement therapy; E87.6 Hypokalemia; Z89.612 Acquired absence of left leg above knee
CPT/HCPCS: 12345; 36415; 51702; 51798; 70450; 71045; 74176; 80048; 80053; 81001; 83605; 84439; 84443; 84481; 85025; 85610; 87040; 87077; 87086; 87186; 87493; 93005; 99284; C1751; J0696; J0743; J1335; J7030; J7050

== ENCOUNTER 2019-04-28 13:48 | Emergency (ER) | payer MEDICARE, OTHER, SELFPAY ==
[2019-04-28 13:51] VITALS: BP 135/65; PULSE 56; RESP 18; TEMP 36.6; O2SAT 100; BMI 16.2
--- NOTE | 2019-04-28 15:15 | ED_ITS ---
Entered by Lisette Sanchez, acting as scribe for Kolby Low MD Apr 28, 2019 13:48 HPI - Seizure General: Chief Complaint: Seizure Stated Complaint: SEIZURE X 2 Time Seen by Provider: 04/28/19 15:16 History of Present Illness: HPI Narrative: 68 yo female presents with seizure x2. Pts states that pt was acting groggy yesterday, she might have had seizures yesterday but they aren't sure. Pts states that pt had 2 seizures today. MD complaint: seizure Onset (ago): day(s) Witnessed: Yes - by Other Trauma: No Seizure History: Yes Place: Home Associated symptoms: Reports no associated symptoms; Deny chest pain, chills or fever(s) Review of Systems Const: Denies: fever, chills, body aches or change in appetite Eyes: Denies: blurry vision or eye discomfort ENMT: Denies: throat pain or dental pain Card: Denies: chest pain Resp: Denies: shortness of breath GI: Denies: abdominal pain, nausea, vomiting or diarrhea : Denies: painful urination Musc: Denies: neck pain or back pain Skin/Breast: Denies: rash Neuro: Denies: headache Psych: Denies: depression Jad/Lymph: Denies: easy bruising All/Imm: Denies: hives PFSH ED PFSH: Medical History (Updated 04/28/19 @ 17:05 by Kolby Low MD) Anemia of chronic disease Atherosclerotic heart disease of [place] coronary artery without angina pectoris Past history of LAD stent greater than 1 year ago Brain aneurysm COPD (chronic obstructive pulmonary disease) CVA (cerebral vascular accident) (~04/05/19) Essential hypertension, benign Gross hematuria Hyperlipidemia Onychodystrophy Osteoporosis Peripheral artery disease Resume Plavix, hold aspirin secondary to hematuria. Hopefully will re-add aspirin in 1 week Peripheral vascular disease Raynaud phenomenon Rheumatoid arthritis Seizure disorder SLE (systemic lupus erythematosus related syndrome) Tobacco abuse, in remission Vitamin D deficiency Surgical History History of carotid endarterectomy History of left above knee amputation History of orthopedic surgery left forearm, left patella History of right hip hemiarthroplasty Hx of cholecystectomy S/P coil embolization of cerebral aneurysm Social History Smoking and tobacco status: never smoked Alcohol intake: never Caregiver/support person: Yes Lives independently: No Household members: spouse Housing: House Marital status: Physical Exam Const: COMMON NORMALS: no apparent distress, average body habitus, oriented x3 and alert GENERAL APPEARANCE: cooperative and comfortable ORIENTATION/CONSCIOUSNESS: Yes awake, Yes oriented to person, Yes oriented to place and Yes oriented to time HENMT: COMMON NORMALS: normocephalic and head/scalp atraumatic HEAD & SCALP: normal to inspection, normocephalic and atraumatic Eye: COMMON NORMALS: PERRL and EOMs intact bilaterally PUPIL: Yes PERRL Neck/C-Spine: COMMON NORMALS: full ROM and supple Chest: COMMONS NORMALS: inspection of chest normal and palpation of chest normal Resp: COMMON NORMALS: normal respiratory effort, no retractions, no use of accessory muscles and clear to auscultation bilaterally AUSCULTATION: clear to auscultation bilaterally Cardio: COMMON NORMALS: regular rate, regular rhythm and no murmurs RATE: regular rate RHYTHM: regular rhythm GI: COMMON NORMALS: normal to inspection, nondistended, normoactive bowel sounds, soft to palpation, non-tender and no masses PALPATION: Yes soft Extremity: OTHER: above knee amputation on left leg Neuro: COMMON NORMALS: oriented x3 SENSORIUM/ORIENTATION: Yes alert, Yes oriented to person, Yes oriented to place and Yes oriented to time Psych: COMMON NORMALS: mental status grossly normal, thought process normal and cooperative THOUGHT PROCESS: normal thought process Skin: COMMON NORMALS: no rashes or lesions noted and no wounds GENERAL SKIN EXAM: no rashes or lesions noted Course Vital Signs: Vital signs: Vital Signs Temperature 97.8 F 04/28/19 13:51 Pulse Rate 85 04/28/19 17:23 Respiratory Rate 20 H 04/28/19 17:23 Blood Pressure 136/112 04/28/19 17:23 Pulse Oximetry 96 04/28/19 17:23 MDM - Seizure MDM Narrative: Medical decision making narrative: Becca presents here with 2 seizures today. She has a long history of seizures and her head CT here is normal. We will increase her Keppra from 500 twice daily to 750 twice daily. Patient is stable for discharge and is to follow-up with her primary care doctor in 3 to 5 days and return if worsening. Imaging Data^: CT Head: Radiologist's impression: Ordering Provider/Ordering MD: Kolby Low MD Date of Service: 04/28/19 Procedure(s): CT head wo con* [id number] Accession Number(s): [id number] Report Number: [id number] PROCEDURE INFORMATION: Exam: CT Head Without Contrast Exam date and time: 04/28/2019 4:09 PM Age: 68 years old Clinical indication: Altered mental status/memory loss; Confusion or disorientation; Prior surgery; Surgery date: 6+ months; Surgery type: Craniotomy; Patient HX: Found unresponsive post ictal AMS; Additional info: Seizure TECHNIQUE: Imaging protocol: Computed tomography of the head without contrast. Total DLP: 866.32 mGy-cm Radiation optimization: All CT scans at this facility use at least one of these dose optimization techniques: automated exposure control; mA and/or kV adjustment per patient size (includes targeted exams where dose is matched to clinical indication); or iterative reconstruction. COMPARISON: CT head wo con* [id number] 04/17/2019 11:58 PM FINDINGS: Brain: There are old infarcts of the right parietal lobe, bilateral occipital lobes, and bilateral cerebellar hemispheres. These findings are similar to the prior CT scan. There are chronic lacunar infarcts in the basal ganglia, lacey, cerebellum, shannon radiata, and centrum semiovale. There is diffuse cerebral atrophy present, consistent with this patient's age. Periventricular and subcortical white matter low densities are present which at this age likely represent microvascular ischemic change. No evidence for large acute ischemic infarction. Please note acute ischemia can be occult by head CT. Ventricles: Normal. No ventriculomegaly. Bones/joints: Right temporal craniotomy changes are present. Sinuses: There is mucosal thickening in the left sphenoid sinus similar to the prior study. Mastoid air cells: Visualized mastoid air cells are well aerated. Soft tissues: Unremarkable. Vasculature: Aneurysm clip in the right suprasellar region with mild adjacent artifact. Calcified plaque is present within the intracranial vasculature. CT/CT head wo con* [id number] IMPRESSION: There are old infarcts of the right parietal lobe, bilateral occipital lobes, and bilateral cerebellar hemispheres and senescent changes of the brain as described above. No evidence for large acute ischemic infarction or acute intracranial injury. Discharge Plan Discharge Patient Disposition: Home, Self-Care Clinical Impression: Generalized seizure Condition: Stable Prescriptions: New Keppra 750 mg tablet 750 mg PO BID Qty: 60 RF: 0 Discontinued levetiracetam [Keppra] 500 mg tablet 500 mg PO BID RF: 0 No Action clopidogrel [Plavix] 75 mg tablet 75 mg PO DAILY Qty: 30 RF: 3 metoprolol tartrate [Lopressor] 100 mg tablet 100 mg PO BID RF: 0 amlodipine [Norvasc] 10 mg tablet 10 mg PO BEDTIME RF: 0 docusate sodium [DOK] 100 mg capsule 100 mg PO BID RF: 0 olmesartan [Benicar] 40 mg tablet 40 mg PO BEDTIME RF: 0 duloxetine [Cymbalta] 20 mg capsule,delayed release(DR/EC) 20 mg PO BEDTIME RF: 0 Women's Multivitamin 18 mg iron-400 mcg-500 mg Tablet 1 tab PO DAILY RF: 0 acetaminophen 325 mg Tablet 650 mg PO Q6H PRN (Reason: Mild/Mod Pain Or Temp >/= 101) Qty: 0 RF: 0 atorvastatin 20 mg Tablet 20 mg PO DAILY RF: 0 ertapenem 1 gram recon soln 1 gm IV DAILY 9 Days Qty: 9 RF: 0 hydrocodone-acetaminophen 5-325 mg tablet 1 tab PO Q6H PRN (Reason: pain) Qty: 20 RF: 0 Discharge Orders: Discharge Order (Routine); Ordered 04/28/19 Ordered By: Kolby Low Referrals: Jakob Nash MD [Primary Care Provider] - Discharge Diet: Advance as tolerated Discharge Activity: Resume usual activity Patient Instructions: Recurrent Seizures Adult (ED) Discharge Date/Time: 04/28/19 17:25 Coding Level of Care Code ED Sales Account Associate for Chg Fwd Exam Comprehensive The documentation recorded by the Daniel cervantes Kialy, accurately reflects the service I personally performed and the decisions made by Maranda barron Korby, MD Apr 28, 2019 13:48
[2019-04-28 15:25] VITALS: O2SAT 97
[2019-04-28] MEDS: LORazepam 2 mg/mL INJ 1 mL 1 MG IVP (15:45)
--- NOTE | 2019-04-28 16:07 | CTR_ITS ---
PROCEDURE INFORMATION: Exam: CT Head Without Contrast Exam date and time: 04/28/2019 4:09 PM Age: 68 years old Clinical indication: Altered mental status/memory loss; Confusion or disorientation; Prior surgery; Surgery date: 6+ months; Surgery type: Craniotomy; Patient HX: Found unresponsive post ictal AMS; Additional info: Seizure TECHNIQUE: Imaging protocol: Computed tomography of the head without contrast. Total DLP: 866.32 mGy-cm Radiation optimization: All CT scans at this facility use at least one of these dose optimization techniques: automated exposure control; mA and/or kV adjustment per patient size (includes targeted exams where dose is matched to clinical indication); or iterative reconstruction. COMPARISON: CT head wo con* [id number] 04/17/2019 11:58 PM FINDINGS: Brain: There are old infarcts of the right parietal lobe, bilateral occipital lobes, and bilateral cerebellar hemispheres. These findings are similar to the prior CT scan. There are chronic lacunar infarcts in the basal ganglia, lacey, cerebellum, shannon radiata, and centrum semiovale. There is diffuse cerebral atrophy present, consistent with this patient's age. Periventricular and subcortical white matter low densities are present which at this age likely represent microvascular ischemic change. No evidence for large acute ischemic infarction. Please note acute ischemia can be occult by head CT. Ventricles: Normal. No ventriculomegaly. Bones/joints: Right temporal craniotomy changes are present. Sinuses: There is mucosal thickening in the left sphenoid sinus similar to the prior study. Mastoid air cells: Visualized mastoid air cells are well aerated. Soft tissues: Unremarkable. Vasculature: Aneurysm clip in the right suprasellar region with mild adjacent artifact. Calcified plaque is present within the intracranial vasculature. CT/CT head wo con* [id number] IMPRESSION: There are old infarcts of the right parietal lobe, bilateral occipital lobes, and bilateral cerebellar hemispheres and senescent changes of the brain as described above. No evidence for large acute ischemic infarction or acute intracranial injury. Radiation Dose CTDIVOL = (mGy): DLP = 866.32 (mGy-cm)
[2019-04-28 17:23] VITALS: BP 136/112; PULSE 85; RESP 20; O2SAT 96
== END 2019-04-28 17:25 | disposition home or self-care (01) ==
PROVIDERS: Emergency Provider Emergency Medicine; Family Provider Internal Medicine; PCP Internal Medicine
DX: G40.409 Other generalized epilepsy and epileptic syndromes, not intractable, without status epilepticus (principal); I25.10 Atherosclerotic heart disease of native coronary artery without angina pectoris; J44.9 Chronic obstructive pulmonary disease, unspecified; I10 Essential (primary) hypertension; E78.5 Hyperlipidemia, unspecified; M32.9 Systemic lupus erythematosus, unspecified; Z86.73 Personal history of transient ischemic attack (TIA), and cerebral infarction without residual deficits; Z95.5 Presence of coronary angioplasty implant and graft
CPT/HCPCS: 70450; 96374; 96375; 99283; J2060